=== PATIENT | male | born 1950 | race American Indian/Alaskan Native ===

== ENCOUNTER 2016-12-17 20:57 | Inpatient (IN) | payer MEDICARE ==
--- NOTE | 2016-12-17 21:45 | Emergency Department Report ---
ED Neuro Deficit HPI - General Stated Complaint: POSS CODE STROKE Time Seen by Provider: 12/17/16 21:30 Source: patient, family, old records reviewed Mode of arrival: Stretcher Limitations: Altered Mental Status - History of Present Illness Initial Comments: 66-year-old male with a past medical history of previous CVA with residual right -sided deficits, hyperlipidemia, hypertension, and dementia presents to the hospital with memory deficit. Patient had difficulty remembering the name of his cousin. Patient is alert to self and place but not to year. He claims this is a new problem for him. He denies any pain and states that his residual right-sided deficits are unchanged and denies any new weakness or numbness. Patient walks with a cane. He complains that the difficulty recalling the name of his cousin began today. Previous medical record review. Patient was last admitted here March 2016 for sepsis and UTI. At that time it is reported that he was overall a poor historian with a history of dementia and he was discharged to a personal senior care. Patient currently lives in his residence. He denies alcohol or drug abuse. Patient called EMS concerned he was having a possible stroke due to his memory deficit I spoke to patient's mechanical estimator from the personal senior care. Intervention Nurse expresses that early this morning patient had garbled speech. This seemed to improve when she dropped him off to be taking care of by another mechanical estimator. They will she picked him up he did not seem like himself. He Complained of not being able to remember his cousin and states he did not feel well and wanted to come to the hospital because he was concerned he was having another stroke. - Related Data Home Medications: Home Medications Medication Instructions Recorded Confirmed Last Taken Atorvastatin Calcium [Lipitor] 20 mg PO QHS 04/02/16 04/02/16 04/02/16 B12/Levomefolate Calcium/B-6 1 tab PO DAILY 04/02/16 04/02/16 04/02/16 Folic Acid [Folvite] 1 mg PO QDAY 04/02/16 04/02/16 04/02/16 Omeprazole 40 mg PO DAILY 04/02/16 04/02/16 04/02/16 Previous Rx's Medication Instructions Recorded Last Taken Type Aspirin [Aspirin BABY CHEW TAB] 81 mg PO QDAY #30 tab.chew 04/05/16 Unknown Rx Levofloxacin [Levaquin] 750 mg PO QDAY #5 tablet 04/05/16 Unknown Rx Fluticasone [Flonase] 1 spray NS QDAY #1 bottle 07/22/16 Unknown Rx Loratadine [Claritin] 10 mg PO DAILY #7 tablet 07/22/16 Unknown Rx Allergies/Adverse Reactions: Allergies Allergy/AdvReac Type Severity Reaction Status Date / Time No Known Allergies Allergy Verified 07/22/16 16:45 ED Review of Systems ROS: Stated complaint: POSS CODE STROKE Other details as noted in HPI Comment: All other systems reviewed and negative Other: Constitutional: No fevers chills Eyes: No eye pain visual changes ENT: No ear pain or throat pain Neck: Denies pain Respiratory: Denies cough wheezing shortness of breath Cardiovascular: Denies chest pain, palpitations, syncope GI: Denies abdominal pain, nausea, vomiting, diarrhea : Denies dysuria Musculoskeletal: Denies back pain, joint swelling Skin: Denies rash, lesions, erythema Neurologic: Denies headache, numbness, weakness Psychiatric: Denies suicidal ideation, hallucinations ED Past Medical Hx - Past Medical History Previous Medical History?: Yes Hx Hypertension: Yes Hx CVA: Yes Hx Dementia: Yes Additional medical history: high cholesterol, Right inquinal hernia - Surgical History Past Surgical History?: No - Social History Smoking Status: Current Every Day Smoker - Medications Home Medications: Home Medications Medication Instructions Recorded Confirmed Last Taken Type Atorvastatin Calcium [Lipitor] 20 mg PO QHS 04/02/16 04/02/16 04/02/16 History B12/Levomefolate Calcium/B-6 1 tab PO DAILY 04/02/16 04/02/16 04/02/16 History Folic Acid [Folvite] 1 mg PO QDAY 04/02/16 04/02/16 04/02/16 History Omeprazole 40 mg PO DAILY 04/02/16 04/02/16 04/02/16 History Aspirin [Aspirin BABY CHEW TAB] 81 mg PO QDAY #30 tab.chew 04/05/16 Unknown Rx Levofloxacin [Levaquin] 750 mg PO QDAY #5 tablet 04/05/16 Unknown Rx Fluticasone [Flonase] 1 spray NS QDAY #1 bottle 07/22/16 Unknown Rx Loratadine [Claritin] 10 mg PO DAILY #7 tablet 07/22/16 Unknown Rx ED Neuro Physical Exam - General Limitations: Altered Mental Status Suspected Stroke: Yes - NIHSS Assessment Interval: Baseline 1a. Level of Consciousness: alert 1b. LOC Questions: answers 1 question correctly 1c. LOC Commands: performs tasks correctly 2. Best Gaze: normal 3. Visual: no visual loss 4. Facial Palsy: normal symmetrical movement 5b. Motor Arm Right: drift 5a. Motor Arm Left: no drift 6a. Motor Leg Left: no drift 6b. Motor Leg Right: drift 7. Limb Ataxia: absent 8. Sensory: normal 9. Best Language: no aphasia 10. Dysarthria: mild/moderate dysarthria (chronic) 11. Extinction/Inattention: no abnormality Total Score: 4 Stroke Severity: Minor Stroke - Other Other exam information: General: No limitations, patient is alert in no acute distress Head exam: Atraumatic, normocephalic Eyes exam: Normal appearance, pupils equal reactive to light, extraocular movements intact ENT: Moist mucous membrane, normal oropharynx Neck exam: Normal inspection, full range of motion, no meningismus nontender Respiratory exam: Clear to auscultation bilateral, no wheezes, rales, crackles Cardiovascular: Normal rate and rhythm, normal heart sounds Abdomen: Soft, nondistended, and nontender, with normal bowel sounds, no rebound, or guarding Extremity: Full range of motion normal inspection no deformity Back: Normal Inspection, full range of motion, no tenderness Neurologic: Alert, oriented x2, cranial nerves intact, see NIH stroke scale. All deficits R pre-existing Psychiatric: normal affect, normal mood Skin: Warm, dry, intact - Lab Data Result diagrams: 12/17/16 22:43 12/17/16 22:43 Lab Results 12/17/16 12/17/16 12/17/16 Range/Units 22:43 22:43 22:43 WBC 6.9 (4.5-11.0) K/mm3 RBC 5.14 H (3.65-5.03) M/mm3 Hgb 15.0 (11.8-15.2) gm/dl Hct 45.0 (35.5-45.6) % MCV 88 (84-94) fl MCH 29 (28-32) pg MCHC 33 (32-34) % RDW 14.9 (13.2-15.2) % Plt Count 198 (140-440) K/mm3 Lymph % (Auto) 34.1 (13.4-35.0) % Leon % (Auto) 8.8 H (0.0-7.3) % Eos % (Auto) 2.9 (0.0-4.3) % Baso % (Auto) 1.4 (0.0-1.8) % Lymph # 2.3 (1.2-5.4) K/mm3 Leon # 0.6 (0.0-0.8) K/mm3 Eos # 0.2 (0.0-0.4) K/mm3 Baso # 0.1 (0.0-0.1) K/mm3 Seg Neutrophils % 52.8 (40.0-70.0) % Seg Neutrophils # 3.6 (1.8-7.7) K/mm3 PT 13.8 (12.2-14.9) Sec. INR 1.07 (0.87-1.13) APTT 29.1 (24.2-36.6) Sec. Sodium 142 (137-145) mmol/L Potassium 4.9 (3.6-5.0) mmol/L Chloride 103.2 (98-107) mmol/L Carbon Dioxide 27 (22-30) mmol/L Anion Gap 17 mmol/L BUN 17 (9-20) mg/dL Creatinine 1.0 (0.8-1.5) mg/dL Estimated GFR > 60 ml/min BUN/Creatinine Ratio 17.00 % Glucose 94 (75-100) mg/dL Calcium 9.4 (8.4-10.2) mg/dL - EKG Data -: EKG Interpreted by Me (nsr rate 68, no stemi) - Radiology Data Radiology results: report reviewed CT head noncontrast: No acute findings. There is a relative hypodensities are seen in the white matter of the cerebral hemispheres is nonspecific and may properly due to chronic ischemic changes from small vessel disease. Sequela from prior infarcts again noted. - Medical Decision Making Patient presented had a TIA. Speech is at baseline at this time. Patient still cannot Remmers causes pain but also has a history of dementia. Patient be admitted for TIA symptoms based on history provided by mechanical estimator. Nothing acute identified ED work. UA pending - Differential Diagnosis dementia, CVA, encephalopathy Critical Care Time: No Critical care attestation.: If time is entered above; I have spent that time in minutes in the direct care of this critically ill patient, excluding procedure time. ED Disposition Clinical Impression: TIA (transient ischemic attack), History of CVA (cerebrovascular accident), Dementia Disposition: OP ADMIT IP TO THIS HOSP Is pt being admited?: Yes Condition: Stable Time of Disposition: 00:41 (Dr Patten/hosp)
--- NOTE | 2016-12-17 22:28 | Cat Scan Report ---
FINAL REPORT EXAM: CT HEAD/BRAIN WO CON HISTORY: memory problems TECHNIQUE: Noncontrast serial axial images from skullbase to vertex PRIORS: CT head from 04/02/2016 FINDINGS: There is moderate atrophy. There is no mass effect or midline shift. Lateral ventricles are stable in size and configuration. There is focal ex vacuo change in the body of the left lateral ventricle. Areas of malacia are seen in the right temporal lobe, right frontal lobe and right parietal lobe. There is evidence of prior infarcts in the right basal ganglia and left subinsular region. There is evidence of prior infarct involving the posterior aspect of the right cerebellar hemisphere as well. Areas of relative hypodensity are seen in the white matter of the cerebral hemispheres and in the central portion of the moises. Atherosclerotic calcifications are noted. Paranasal sinuses and mastoid air cells are well aerated. No acute osseous abnormality is identified. IMPRESSION: 1. No abnormal mass or acute intracranial hemorrhage is identified. 2. Sequelae from prior infarcts are again noted. 3. Areas of relative hypodensity are seen in the white matter of the cerebral hemispheres. This is a nonspecific finding. It may be related to chronic ischemic change from small vessel disease.
[2016-12-17 22:57] LABS: Basophils % (Auto) 1.4 % (0.0-1.8); Eosinophils % (Auto) 2.9 % (0.0-4.3); Mean Corpuscular HGB Conc 33 % (32-34); Mean Corpuscular Hemoglobin 29 pg (28-32); Mean Corpuscular Volume 88 fl (84-94); Platelet Count 198 K/mm3 (140-440); Red Blood Count 5.14 M/mm3 (3.65-5.03); Red Cell Distribution Width 14.9 % (13.2-15.2); White Blood Count 6.9 K/mm3 (4.5-11.0)
[2016-12-17 23:08] LABS: INR 1.07 (0.87-1.13)
[2016-12-17 23:09] LABS: Partial Thromboplastin Time 29.1 Sec. (24.2-36.6)
[2016-12-17 23:15] LABS: Anion Gap 17 mmol/L; Blood Urea Nitrogen 17 mg/dL (9-20); Calcium 9.4 mg/dL (8.4-10.2); Carbon Dioxide 27 mmol/L (22-30); Chloride 103.2 mmol/L (98-107); Glucose 94 mg/dL (75-100); Potassium 4.9 mmol/L (3.6-5.0); Sodium 142 mmol/L (137-145)
[2016-12-18] MEDS ORDERED: GEODON PO ONE ×3 (01:22→21:00)
[2016-12-18] MEDS ORDERED: GEODON IM ONE (01:24)
[2016-12-18] MEDS ORDERED: ZOFRAN IV PRN (02:23)
[2016-12-18] MEDS ORDERED: SODIUM CHLORIDE FLUSH SYRINGE 10 ML IV PRN (02:23)
[2016-12-18] MEDS ORDERED: MILK OF MAGNESIA PO PRN (02:23)
[2016-12-18] MEDS ORDERED: DULCOLAX PR PRN (02:23)
[2016-12-18] MEDS ORDERED: TYLENOL PO PRN (02:23)
--- NOTE | 2016-12-18 02:35 | History and Physical Report ---
History of Present Illness Date of examination: 12/18/16 History of present illness: 66-year-old man with history of hypertension, hyperlipidemia, CVA, dementia was brought to the emergency room because he developed slurred speech and became more forgetful. His symptoms lasted for an hour Patient denies chest pain, palpitation, shortness of breath, cough, abdominal pain, hematochezia, dysuria, frequency, focal weakness, dysarthria, fever chills , polydipsia polyuria, hot or cold intolerance, easy bruisability, or rash or bleeding from mucosal membrane, rhinorrhea, epistaxis, earache, tinnitus, blurry vision, eye discharge, anxiety, depression. Other review of systems negative PAST SURGICAL HISTORY: Hernia repair SOCIAL HISTORY: Denies alcohol, drugs, smoke a pack a day FAMILY HISTORY: Hypertension Medications and Allergies Allergies Allergy/AdvReac Type Severity Reaction Status Date / Time No Known Allergies Allergy Verified 07/22/16 16:45 Home Medications Medication Instructions Recorded Confirmed Last Taken Type Atorvastatin Calcium [Lipitor] 20 mg PO QHS 04/02/16 04/02/16 04/02/16 History B12/Levomefolate Calcium/B-6 1 tab PO DAILY 04/02/16 04/02/16 04/02/16 History Folic Acid [Folvite] 1 mg PO QDAY 04/02/16 04/02/16 04/02/16 History Omeprazole 40 mg PO DAILY 04/02/16 04/02/16 04/02/16 History Aspirin [Aspirin BABY CHEW TAB] 81 mg PO QDAY #30 tab.chew 04/05/16 Unknown Rx Levofloxacin [Levaquin] 750 mg PO QDAY #5 tablet 04/05/16 Unknown Rx Fluticasone [Flonase] 1 spray NS QDAY #1 bottle 07/22/16 Unknown Rx Loratadine [Claritin] 10 mg PO DAILY #7 tablet 07/22/16 Unknown Rx Active Meds: Active Medications Acetaminophen (Tylenol) 650 mg PO Q4H PRN PRN Reason: Pain, Mild (1-3) Aspirin (Aspirin) 325 mg PO QDAY CHERYL Bisacodyl (Dulcolax) 10 mg ND QDAY PRN PRN Reason: Constipation Enoxaparin Sodium (Lovenox) 30 mg SUB-Q QDAY CHERYL Magnesium Hydroxide (Milk Of Magnesia) 30 ml PO Q4H PRN PRN Reason: Constipation Ondansetron HCl (Zofran) 4 mg IV Q8H PRN PRN Reason: N/V unrelieved by Reglan Simvastatin (Zocor) 20 mg PO QHS CHERYL Sodium Chloride (Sodium Chloride Flush Syringe 10 Ml) 10 ml INJ PRN PRN PRN Reason: LINE FLUSH Exam - Physical Exam Narrative exam: Gen. appearance: Patient lying in bed, no apparent distress HEENT: Normocephalic, atraumatic, pupils equally round and reactive to light, extraocular movement intact, and no sclericterus,. No JVD or thyromegaly or nodule,neck supple, no carotid bruit ,mucous membranes moist, no exudate or erythema Heart: S1, S2, regular rate and rhythm Lungs: Clear to auscultation bilaterally, breathing comfortable Abdomen: Positive bowel sounds, nontender, nondistended, no organomegaly Extremity: No edema, cyanosis, clubbing Skin: No rash, nodules, warm, dry Neuro: Oriented 3, cranial nerves II-12 intact, speech is fluent, motor and sensory intact - Constitutional Vitals: Temp Pulse Resp BP Pulse Ox 98.5 F 70 16 126/83 96 12/18/16 01:18 12/18/16 02:00 12/18/16 01:18 12/18/16 01:18 12/18/16 01:33 Results - Labs CBC & Chem 7: 12/17/16 22:43 12/17/16 22:43 Labs: Abnormal lab results 12/17/16 Range/Units 22:43 RBC 5.14 H (3.65-5.03) M/mm3 [place] % (Auto) 8.8 H (0.0-7.3) % - Imaging and Cardiology EKG: image reviewed CT Scan - head: report reviewed Assessment and Plan TIA Hypertension Hyperlipidemia Dementia History of CVA Admits medicine Do neurochecks, swallow screen Obtain MRI of the head, carotid Doppler, echo Part aspirin, statin consult neurology, physical and occupational therapy Start DVT prophylaxis Continue appropriate outpatient medications
[2016-12-18 03:01] LABS: Bilirubin,Urine NEG (Negative); Blood,Urine NEG (Negative); Ketones,Urine NEG (Negative); Leukocyte Esterase,Urine NEG (Negative); Nitrite,Urine NEG (Negative); Protein,Urine <15 mg/dL mg/dL (Negative); RBC,Urine < 1.0 /HPF (0.0-6.0); WBC,Urine < 1.0 /HPF (0.0-6.0)
[2016-12-18] MEDS ORDERED: ATIVAN IV ONE (09:44)
[2016-12-18] MEDS ORDERED: ATIVAN IV PRN (09:45)
[2016-12-18] MEDS: ASPIRIN PO SCH (09:57)
[2016-12-18] MEDS: LOVENOX SUB-Q SCH (10:01)
--- NOTE | 2016-12-18 12:36 | Magnetic Resonance Report ---
MRI OF THE BRAIN WITHOUT CONTRAST: HISTORY: Stroke PROCEDURE: Multiplanar, multisequence MR imaging of the brain without IV contrast was performed. FINDINGS: Compared to the CT head performed 12/17/16. There is advanced diffuse volume loss. Advanced chronic white matter changes are also identified, right greater than left. There are multiple chronic lacunar infarcts in both basal ganglia and staples radiata. A chronic tear infarctions also identified in the left moises. Small chronic cortical infarcts are identified in the right watershed zones and right anterior temporal lobe. No evidence for acute ischemia, hemorrhage, mass or extra axial fluid collection. The midline structures are central. The basal cisterns are patent. Normal ventricular size given the volume loss. The orbital cavities and sella turcica demonstrate no abnormality. The visualized paranasal sinuses and mastoid air cells are well aerated. IMPRESSION: Advanced volume loss and chronic white matter changes. Multiple chronic infarcts as outlined above. No acute intracranial process is appreciated.
--- NOTE | 2016-12-18 15:52 | Consultation ---
History of Present Illness - Reason for Consult Consult date: 12/18/16 TIA's - History of Present Illness went over the imaging studies and advanced ! infarcts all chronic a/w hx of TIA's plan to go over grace with radiology to see if we cab reduce stroke risk factors Thanks Medications and Allergies Allergies Allergy/AdvReac Type Severity Reaction Status Date / Time No Known Allergies Allergy Verified 07/22/16 16:45 Home Medications Medication Instructions Recorded Confirmed Last Taken Type Atorvastatin Calcium [Lipitor] 20 mg PO QHS 04/02/16 04/02/16 04/02/16 History B12/Levomefolate Calcium/B-6 1 tab PO DAILY 04/02/16 04/02/16 04/02/16 History Folic Acid [Folvite] 1 mg PO QDAY 04/02/16 04/02/16 04/02/16 History Omeprazole 40 mg PO DAILY 04/02/16 04/02/16 04/02/16 History Aspirin [Aspirin BABY CHEW TAB] 81 mg PO QDAY #30 tab.chew 04/05/16 Unknown Rx Levofloxacin [Levaquin] 750 mg PO QDAY #5 tablet 04/05/16 Unknown Rx Fluticasone [Flonase] 1 spray NS QDAY #1 bottle 07/22/16 Unknown Rx Loratadine [Claritin] 10 mg PO DAILY #7 tablet 07/22/16 Unknown Rx Active Meds: Active Medications Acetaminophen (Tylenol) 650 mg PO Q4H PRN PRN Reason: Pain, Mild (1-3) Aspirin (Aspirin) 325 mg PO QDAY [facility] Last Admin: 12/18/16 09:57 Dose: 325 mg Bisacodyl (Dulcolax) 10 mg SD QDAY PRN PRN Reason: Constipation Enoxaparin Sodium (Lovenox) 40 mg SUB-Q QDAY [facility] Last Admin: 12/18/16 10:01 Dose: 40 mg Lorazepam (Ativan) 1 mg IV Q4H PRN PRN Reason: Agitation Magnesium Hydroxide (Milk Of Magnesia) 30 ml PO Q4H PRN PRN Reason: Constipation Ondansetron HCl (Zofran) 4 mg IV Q8H PRN PRN Reason: N/V unrelieved by Reglan Simvastatin (Zocor) 20 mg PO QHS [facility] Sodium Chloride (Sodium Chloride Flush Syringe 10 Ml) 10 ml IV PRN PRN PRN Reason: LINE FLUSH Exam - Constitutional Vitals: Temp Pulse Resp BP Pulse Ox 97.9 F 68 18 126/76 94 12/18/16 12:13 12/18/16 12:13 12/18/16 12:13 12/18/16 12:13 12/18/16 12:13 Results - Labs CBC & Chem 7: 12/17/16 22:43 12/17/16 22:43
--- NOTE | 2016-12-18 17:24 | Event Note ---
Date: 12/18/16 Patient seen and examined, in no acute distress. continue current treatment plan.
[2016-12-18] MEDS ORDERED: ZOCOR PO SCH (22:00)
[2016-12-19 06:08] LABS: Hematocrit 50.4 % (35.5-45.6); Hemoglobin 17.1 gm/dl (11.8-15.2); Mean Corpuscular HGB Conc 34 % (32-34); Mean Corpuscular Hemoglobin 29 pg (28-32); Mean Corpuscular Volume 86 fl (84-94); Platelet Count 184 K/mm3 (140-440); Red Blood Count 5.84 M/mm3 (3.65-5.03); Red Cell Distribution Width 14.5 % (13.2-15.2); White Blood Count 9.2 K/mm3 (4.5-11.0)
[2016-12-19 06:28] LABS: Anion Gap 19 mmol/L; Blood Urea Nitrogen 16 mg/dL (9-20); Calcium 9.2 mg/dL (8.4-10.2); Carbon Dioxide 24 mmol/L (22-30); Chloride 103.2 mmol/L (98-107); Cholesterol 150 mg/dL (50-199); Glucose 68 mg/dL (75-100); HDL Cholesterol 56 mg/dL (40-59); LDL Cholesterol,Direct 81 mg/dL (50-130); Potassium 4.4 mmol/L (3.6-5.0); Sodium 142 mmol/L (137-145); Triglycerides 66 mg/dL (2-149)
--- NOTE | 2016-12-19 10:06 | Admit Criteria Form ---
Admission Criteria Documentation: TRANSIENT ISCHEMIC ATTACK (TIA) Clinical Indications for Admission to Inpatient Care (Place 'X' for any and all applicable criteria): Admission is indicated for ANY ONE of the following(1)(2)(3)(4)(5): [ ]I. Immediate inpatient procedure is needed (eg, endarterectomy). [ ]II. Inpatient admission required rather than observation care (Also use Transient Ischemic Attack (TIA): Observation Care Criteria as appropriate) because of ANY ONE of the following: [ ]a) Focal neurologic signs or symptoms persist or recurring [ ]b) Cardiac arrhythmias of immediate concern [ ]c) Clinically significant cardiac disorder identified that requires inpatient care (eg, severe valvular disease, atrial myxoma, cardiomyopathy) [ ]d) Hypertension requiring inpatient treatment [ ]e) Parenteral anticoagulation required (eg, alternative forms of anticoagulation not appropriate or not feasible) as indicated by ALL of the following(13): [ ]i) Temporary subtherapeutic anticoagulation unacceptable because of high risk of short-term venous or arterial thromboembolism due to ANY ONE of the following(14)(15)(16): [ ]1) Atrial fibrillation suspected as etiology of TIA(17)(18)(19)(20)(21) [ ]2) Venous thromboembolism within past 12 months [ ]3) Underlying malignancy [ ]4) Patient with mechanical cardiac valve(22)( 23) [ ]5) Underlying hypercoagulable state (eg, protein C or protein S deficiency antithrombin deficiency, antiphospholipid antibodies) [ ]6) Patient at temporary high risk of thromboembolism (eg, status post orthopedic surgery) [ ]ii) Contraindications to outpatient use of "bridging" agent or alternative oral anticoagulant[B] as indicated by ALL of the following: [ ]1) Contraindication to outpatient use of low- molecular-weight heparin as "bridging" agent as indicated by ANY ONE of the following(15): [ ]A. Documented current or history of heparin-induced thrombocytopenia(24) [ ]B. Severe thrombocytopenia (eg, platelet count less than 50,000/mm3 (75y518/L) [ ]C. Documented allergy to heparin, low- molecular-weight heparin, or pork products [ ]D. Renal failure (creatinine clearance less than 30 mL/min/1.73m2 (0.50mL/sec/1.73m2) or on dialysis) [ ]E. Inability to manage self-injection ( eg, by patient, caregiver, or visiting nurse) [ ]2) Contraindication to outpatient use of fondaparinux as "bridging" agent as indicated by ANY ONE of the following(25)(26 )(27)(28): [ ]A. Severe thrombocytopenia (eg, platelet count less than 50,000/mm3 (50 x109/L)) [ ]B.Hypersensitivity to fondaparinux, related drugs, or product components [ ]C.Renal failure (creatinine clearance less than 30 mL/min/1.73m2 (0.50mL/sec/1.73m2) or on dialysis) [ ]D.Inability to manage self-injection ( eg, by patient, caregiver, or visiting nurse [ ]3. Oral direct thrombin inhibitor (eg, dabigatran) or oral coagulation factor Xa inhibitor (eg, rivaroxaban, apixaban) not appropriate as oral anticoagulation (eg, indication not appropriate) or contraindicated (eg, hypersensitivity, creatinine clearance less than 15 mL/min/1.73m2 ( 0.25 mL/sec/1.73m2) or on dialysis). [ ]f) Continuous IV infusion of anticoagulant, platelet inhibitor, vasoactive or antiarrhythmia(18)(19) [ ]g) Other condition, treatment, or monitoring requiring inpatient admission [ ]III. Contraindications and/or Inappropriate clinical situations for Observational Care in patients with Transient Ischemic Attack (TIA), when ANY ONE of the following is required: [ ]a) Patient with persistent or severe neurological deficit 24 [ ]b) Patient with acute CVA or other identified pathology should be admitted to inpatient for further care 25 [X]IV. General contraindications and/or Inappropriate clinical situations for Observational Care in patients with Transient Ischemic Attack (TIA), when ANY ONE of the following is required: [X]a) Prediction of prolongation of LOS based on ANY ONE of the following may be considered as a contraindication for observational care 2, 3, 4, 5, 6, 7, 8, 9, 10, 11 [X]i) Age > 65 yrs. [ ]ii) Patient arriving by ambulance [ ]iii) Patient with high acuity [ ]iv) Patient requiring vital sign monitoring [ ]v) Patient on IV medication [ ]b) Systolic blood pressures 180mmHg 3,12 [ ]c) Patient with altered mental status including delirium and other alteration of consciousness, (3) [ ]d) Patient whose discharge disposition will be to a long term home or rehabilitation home should not be managed in Emergency Department Observation Unit. CMS rule requires 3 days hospital stay before such placement.3,13 [ ]e) Patient with failure to thrive due to broad array of etiologies 3,16,17 [ ]f) Inability to ambulate 3,14 Extended stay beyond goal length of stay may be needed for(4)(30)(32): [ ]a) Parenteral anticoagulation required [ ]b) Dangerous arrhythmia [ ]c) Cardiac valvular disorder, atrial myxoma, cardiomyopathy [ ]d) Uncontrolled severe hypertension [ ]e) Severe carotid stenosis [ ]f) Active comorbidities (eg, heart failure) [ ]g) Extracranial vertebrobasilar disease(29) [ ]h) Clinical evolution of TIA into cerebrovascular accident (stroke) The original [employer] content created by [employer] has been revised. The portions of thecontent which have been revised are identified through the use of italic text or in bold, and [facility] has neither reviewed nor approved the modified material. All other unmodified content is copyright [employer]. Please see references footnoted in the original [employer] edition 2016 Admission Criteria Met: Yes
--- NOTE | 2016-12-19 11:00 | Consultation ---
History of Present Illness - Reason for Consult Consult date: 12/19/16 Evaluate for Acute IRU - History of Present Illness 66 y.o. male with history of prior CVA who presented due to acute onset of slurred speech and word finding difficulty. CT Brain and MRI Brain noted to be negative for any acute CVA. On today, pt reports that his speech has returned to normal. Pt currently lives with his cousin who has assisted him since his CVA many years ago. He is requiring a roll belt due to attempts to get out of bed. Consult placed for post acute placement recommendations. Past History Past Medical History: stroke (with minimal right sided weakness and mild dysarthria) Past Surgical History: No surgical history (pt denies) Social history: lives with family (cousin), smoking. denies: alcohol abuse Family history: no significant family history (pt denies) Medications and Allergies Allergies Allergy/AdvReac Type Severity Reaction Status Date / Time No Known Allergies Allergy Verified 07/22/16 16:45 Home Medications Medication Instructions Recorded Confirmed Last Taken Type Atorvastatin Calcium [Lipitor] 20 mg PO QHS 04/02/16 04/02/16 04/02/16 History B12/Levomefolate Calcium/B-6 1 tab PO DAILY 04/02/16 04/02/16 04/02/16 History Folic Acid [Folvite] 1 mg PO QDAY 04/02/16 04/02/16 04/02/16 History Omeprazole 40 mg PO DAILY 04/02/16 04/02/16 04/02/16 History Aspirin [Aspirin BABY CHEW TAB] 81 mg PO QDAY #30 tab.chew 04/05/16 Unknown Rx Levofloxacin [Levaquin] 750 mg PO QDAY #5 tablet 04/05/16 Unknown Rx Fluticasone [Flonase] 1 spray NS QDAY #1 bottle 07/22/16 Unknown Rx Loratadine [Claritin] 10 mg PO DAILY #7 tablet 07/22/16 Unknown Rx Active Meds: Active Medications Acetaminophen (Tylenol) 650 mg PO Q4H PRN PRN Reason: Pain, Mild (1-3) Aspirin (Aspirin) 325 mg PO QDAY CHERYL Last Admin: 12/18/16 09:57 Dose: 325 mg Bisacodyl (Dulcolax) 10 mg DC QDAY PRN PRN Reason: Constipation Enoxaparin Sodium (Lovenox) 40 mg SUB-Q QDAY [facility] Last Admin: 12/18/16 10:01 Dose: 40 mg Lorazepam (Ativan) 1 mg IV Q4H PRN PRN Reason: Agitation Magnesium Hydroxide (Milk Of Magnesia) 30 ml PO Q4H PRN PRN Reason: Constipation Ondansetron HCl (Zofran) 4 mg IV Q8H PRN PRN Reason: N/V unrelieved by Reglan Simvastatin (Zocor) 20 mg PO QHS [facility] Last Admin: 12/18/16 22:36 Dose: 20 mg Sodium Chloride (Sodium Chloride Flush Syringe 10 Ml) 10 ml IV PRN PRN PRN Reason: LINE FLUSH Review of Systems All systems: negative Ears, nose, mouth and throat: no headache Cardiovascular: no chest pain Neurological: change in speech (now improved to baseline) Exam - Constitutional Vitals: Vital Signs - 12hr 12/19/16 12/19/16 12/19/16 01:23 03:47 05:05 Temperature 97.9 F 97.5 F L Pulse Rate 60 Pulse Rate [ 0 L 0 L Radial] Pulse Rate [ 61 50 L Right Radial] Respiratory 18 20 Rate Blood Pressure 119/77 133/70 [Right Arm] O2 Sat by Pulse 95 93 Oximetry 12/19/16 08:21 Temperature 97.7 F Pulse Rate Pulse Rate [ 0 L Radial] Pulse Rate [ 62 Right Radial] Respiratory 20 Rate Blood Pressure 116/81 [Right Arm] O2 Sat by Pulse 100 Oximetry General appearance: no acute distress, other (roll belt in place) - EENT Eyes: EOM intact ENT: hearing intact, poor dentition - Neck Neck: supple, normal ROM - Respiratory Respiratory effort: normal Respiratory: bilateral: CTA - Cardiovascular Rhythm: regular Heart Sounds: Present: S1 & S2 - Extremities Extremities: No edema - Gastrointestinal General gastrointestinal: Present: soft, non-tender, non-distended, normal bowel sounds - Integumentary Integumentary: Present: clear - Neurologic Neurologic: CNII-XII intact, moves all extremities (4/5 strength), other ( sensation grossly intact) - Psychiatric Psychiatric: appropriate mood/affect, no memory intact (oriented to self and birthdate; aware that he is in the hospital, however, does not know the name), cooperative - Allied health notes Allied health notes reviewed: PT (SBA/Mary for bed mobility and transfers; CGA/ modA 10 feet with straight cane) FIMS assesment as documented by PT/OT/ST: Locomotion- walk/wheelchair Ambulation Distance 10 - Labs CBC & Chem 7: 12/19/16 04:58 12/19/16 04:58 Labs: Laboratory Results - last 72 hr 12/18/16 12/19/16 12/19/16 02:34 04:58 04:58 WBC 9.2 RBC 5.84 H Hgb 17.1 H Hct 50.4 H MCV 86 MCH 29 MCHC 34 RDW 14.5 Plt Count 184 Sodium 142 Potassium 4.4 Chloride 103.2 Carbon Dioxide 24 Anion Gap 19 BUN 16 Creatinine 0.8 Estimated GFR > 60 BUN/Creatinine Ratio 20.00 Glucose 68 L Calcium 9.2 Triglycerides 66 Cholesterol 150 LDL Cholesterol Direct 81 HDL Cholesterol 56 Cholesterol/HDL Ratio 2.67 Urine Color Yellow Urine Turbidity Clear Urine pH 5.0 Ur Specific [place] 1.026 Urine Protein <15 mg/dl Urine Glucose (UA) Neg Urine Ketones Neg Urine Blood Neg Urine Nitrite Neg Urine Bilirubin Neg Urine Urobilinogen 2.0 Ur Leukocyte Esterase Neg Urine WBC (Auto) < 1.0 Urine RBC (Auto) < 1.0 Assessment and Plan Patient was assessed and evaluated for Acute Inpatient Rehab Unit. 66 y.o. male with history of prior CVA; acute speech change has resolved and pt is now at baseline. PT evaluation has been reviewed; pt requires SBA-Mary for transfers and bed mobility, CGA/modA for gait short distances. Pt is safe to return home with 24 hour supervision for family, as previous. Pt would likely benefit from home vs outpt PT to address gait instability. Will need to follow up with PCP, Neurology as outpt. Case discussed with primary team. Please call for further questions. Thank you for consultation. - Patient Problems (1) TIA (transient ischemic attack) Current Visit: Yes Status: Acute Qualifiers: Transient cerebral ischemia type: T (2) History of CVA (cerebrovascular accident) Current Visit: Yes Status: Acute (3) Dysarthria as late effect of cerebrovascular accident (CVA) Current Visit: Yes Status: Acute (4) Tobacco abuse Current Visit: Yes Status: Acute
[2016-12-19] MEDS: ASPIRIN PO SCH (11:05)
[2016-12-19] MEDS: LOVENOX SUB-Q SCH (11:05)
--- NOTE | 2016-12-19 11:28 | Discharge Summary ---
Providers - Providers Date of Admission: 12/18/16 02:23 Date of discharge: 12/19/16 Attending physician: LEE ANN RO MD 12/18/16 Consult to Physician [CONS] Routine Consulting Provider: CLARE MATHEWS Reason For Exam: tia Place consult to:: DR MATHEWS Notified:: Y If yes, spoke with:: LEFT MESSAGE AT OFFICE Time called:: 14:15 Comment:: 12/18/16 12/18/16 09:44 Consult to Physician [CONS] Routine Consulting Provider: AVINASH LIAO Reason For Exam: CVA Place consult to:: NEURO Notified:: Y If yes, spoke with:: A/S ANA Time called:: 12:15 Primary care physician: ORTHOPEDIC TECH Hospitalization Condition: Stable Disposition: DC/[place]-06 HOME UNDER HOME HLTH Time spent for discharge: 35 MINS Core Measure Documentation - Palliative Care Palliative Care/ Comfort Measures: Not Applicable - Core Measures Any of the following diagnoses?: stroke - Stroke Discharge Requirements Statin for LDL = or >70 mg/dl on DC: Yes Anticoag for atrial fib/atrial flutter: Not Applicable Antithrombotic for ischemic stroke: Yes Exam - Constitutional Vitals: Temp Pulse Resp BP Pulse Ox 97.7 F 0 L 20 116/81 100 12/19/16 08:21 12/19/16 08:21 12/19/16 08:21 12/19/16 08:21 12/19/16 08:21 Plan Activity: advance as tolerated, fall precautions Diet: low fat, low salt Special Instructions: record daily BP diary, physical therapy, occupational therapy Follow up with: YOHANA GUTIERREZ MD [Primary Care Provider] - 3-5 Days AVINASH LIAO MD [Staff Physician] - 7 Days Prescriptions: AtorvaSTATin [Lipitor] 40 mg PO QHS #30 tab
[2016-12-19 11:55] VITALS: BP 122/69
--- NOTE | 2016-12-20 08:01 | Vascular Lab Report ---
CAROTID DUPLEX STUDY: RIGHT PSVEDV CCA PROX:[id number] CCA DIST: 8821 ICA PROX: 5910 ICA MID: 7428 ICA DIST: 5821 ECA: 8210 VERT: 38 10 LEFT PSVEDV CCA PROX:[id number] CCA DIST: 9018 ICA PROX: 3815 ICA MID: 5116 ICA DIST: 7019 ECA: 5210 VERT: 42 9 REASON FOR EXAM: [place]. COMMENTS ON THE RIGHT: Doppler frequency analysis is consistent with 16 to 49 percent diameter reduction of the internal carotid artery. Minimal amount of plaque is seen. The common carotid artery is patent. The external carotid artery is patent. The vertebral artery has antegrade flow. COMMENTS ON THE LEFT: Doppler frequency analysis is consistent with 16 to 49 percent diameter reduction of the internal carotid artery. Minimal amount of plaque is seen. The common carotid artery is patent. The external carotid artery is patent. The vertebral artery has antegrade flow. IMPRESSION: Less than 50% diameter reduction in the internal carotid arteries bilaterally. Consider repeat carotid artery duplex in 12 months.
== END 2016-12-19 17:00 | disposition home health service (06) | DRG 69 ==
LOC: ED 20:57 → 4A 12-18 02:23
PROVIDERS: ADMIT Internal Medicine; ATTEND Internal Medicine
DX: G45.9 Transient cerebral ischemic attack, unspecified (principal); I10 Essential (primary) hypertension; E78.5 Hyperlipidemia, unspecified; F03.90 Unspecified dementia, unspecified severity, without behavioral disturbance, psychotic disturbance, mood disturbance, and anxiety; F17.200 Nicotine dependence, unspecified, uncomplicated; Z82.49 Family history of ischemic heart disease and other diseases of the circulatory system; I69.322 Dysarthria following cerebral infarction
CPT/HCPCS: 36415; 70450; 70551; 80048; 80061; 81001; 85025; 85027; 85610; 85730; 93005; 93010; 93306; 93880; 96374; G8978-GP; G8979-GP; G8987-GO; G8988-GO; J1650; J2060

== ENCOUNTER 2017-01-05 12:10 | Inpatient (IN) | payer MEDICARE, OTHER ==
[2017-01-05 13:28] LABS: Hematocrit 46.1 % (35.5-45.6); Hemoglobin 15.4 gm/dl (11.8-15.2); Mean Corpuscular HGB Conc 34 % (32-34); Mean Corpuscular Hemoglobin 29 pg (28-32); Mean Corpuscular Volume 87 fl (84-94); Platelet Count 211 K/mm3 (140-440); Red Cell Distribution Width 14.6 % (13.2-15.2); White Blood Count 6.1 K/mm3 (4.5-11.0)
[2017-01-05 13:36] LABS: Creatine Kinase MB 1.3 ng/mL (0.0-4.0)
[2017-01-05 13:37] LABS: Creatine Kinase 119 units/L (55-170)
[2017-01-05 13:38] LABS: INR 1.03 (0.87-1.13)
[2017-01-05 13:39] LABS: Partial Thromboplastin Time 28.6 Sec. (24.2-36.6)
[2017-01-05 14:01] LABS: Urine Drugs of Abuse Note Disclamer
[2017-01-05 14:08] LABS: Bilirubin,Urine NEG (Negative); Blood,Urine NEG (Negative); Ketones,Urine NEG (Negative); Leukocyte Esterase,Urine NEG (Negative); Mucus,Urine FEW /HPF; Nitrite,Urine NEG (Negative); Protein,Urine <15 mg/dL mg/dL (Negative); Urobilinogen,Urine < 2.0 mg/dL (<2.0)
[2017-01-05 14:11] LABS: WBC,Urine < 1.0 /HPF (0.0-6.0)
--- NOTE | 2017-01-05 14:14 | Emergency Department Report ---
HPI - General Chief Complaint: Neuro Symptoms/Deficit Time Seen by Provider: 01/05/17 12:37 - HPI HPI: This is a 66-year-old Afro[place] male presents to the emergency department from home via EMS with complaint of concern for a TIA or stroke. The patient has a history of a CVA from 4 years ago that left him with some slurred speech and left arm paralysis. Today the patient began having some drooling that was uncontrollable side of his mouth and this concerned him. His caregiver called EMS. He did not receive anything for his symptoms prior to presentation. He says that the drooling improved and that he feels like he is back at his baseline. He is ambulatory at baseline with some assistance. No recent travel or sick contacts at home. He denies any headache, vision change or sensory deficits or any worsening of his speech. ED Past Medical Hx - Past Medical History Hx Hypertension: Yes Hx CVA: Yes Hx Heart Attack/AMI: No Hx Congestive Heart Failure: No Hx Deep Vein Thrombosis: No Hx Pulmonary Embolism: No Hx Seizures: No Hx Asthma: No Hx Tuberculosis: No Hx Dementia: Yes Hx HIV: No Additional medical history: high cholesterol, Right inquinal hernia - Surgical History Hx Coronary Stent: No Hx Open Heart Surgery: No Hx Pacemaker: No Hx Internal Defibrillator: No Hx Appendectomy: No Hx Breast Surgery: No - Social History Smoking Status: Unknown if ever smoked - Medications Home Medications: Home Medications Medication Instructions Recorded Confirmed Last Taken Type B12/Levomefolate Calcium/B-6 1 tab PO DAILY #0 04/02/16 01/05/17 1 Day Ago History [Foltx Tablet] Folic Acid [Folvite] 1 mg PO QDAY 04/02/16 01/05/17 1 Day Ago History Omeprazole 40 mg PO DAILY 04/02/16 01/05/17 1 Day Ago History Aspirin [Aspirin BABY CHEW TAB] 81 mg PO QDAY #30 tab.chew 04/05/16 01/05/17 1 Day Ago Rx Fluticasone [Flonase] 1 spray NS QDAY #1 bottle 07/22/16 01/05/17 1 Day Ago Rx Loratadine [Claritin] 10 mg PO DAILY #7 tablet 07/22/16 01/05/17 1 Day Ago Rx AtorvaSTATin [Lipitor] 40 mg PO QHS #30 tab 12/19/16 01/05/17 Unknown Rx Latanoprost 0.005% [Xalatan 0.005%] 1 drop OP QPM 01/05/17 01/05/17 Unknown History ED Review of Systems ROS: Stated complaint: POSS TIA Other details as noted in HPI Comment: All other systems reviewed and negative Constitutional: denies: chills, fever Eyes: denies: eye pain, eye discharge, vision change ENT: other (drooling). denies: ear pain, throat pain Respiratory: denies: cough, shortness of breath, wheezing Cardiovascular: denies: chest pain, palpitations Gastrointestinal: denies: abdominal pain, nausea, diarrhea Genitourinary: denies: urgency, dysuria Musculoskeletal: denies: back pain, joint swelling, arthralgia Skin: denies: rash, lesions Neurological: denies: headache, weakness, paresthesias Physical Exam - Physical Exam Vital Signs: Vital Signs 01/05/17 01/05/17 12:33 12:45 Temperature 98.1 F Pulse Rate 66 Respiratory 16 17 Rate O2 Sat by Pulse 96 95 Oximetry Physical Exam: GENERAL: The patient is well-developed well-nourished. HEENT: Normocephalic. Atraumatic. Extraocular motions are intact. Patient has moist mucous membranes. Pupils equal reactive to light bilaterally. Oropharynx clear. NECK: Supple. Trachea is midline. CHEST/LUNGS: Clear to auscultation. There is no respiratory distress noted. HEART/CARDIOVASCULAR: Regular. There is no tachycardia. There is no gallop rub or murmur. ABDOMEN: Abdomen is soft, nontender. Patient has normal bowel sounds. There is no abdominal distention. SKIN: Skin is warm and dry. NEURO: The patient is awake, alert. AAO [address] but not time. The patient is cooperative. There is slurred speech but the patient says that this is chronic. Chronic left upper extremity paraplegia. No facial asymmetry. MUSCULOSKELETAL: There is no tenderness to palpation. Chronic left upper extremity paraplegia and atrophy. Radial pulses +2 over 4 bilaterally. ED Course Vital Signs 01/05/17 01/05/17 12:33 12:45 Temperature 98.1 F Pulse Rate 66 Respiratory 16 17 Rate O2 Sat by Pulse 96 95 Oximetry ED Medical Decision Making - Lab Data Result diagrams: 01/05/17 12:54 01/05/17 12:54 - EKG Data EKG shows normal: sinus rhythm, axis (LAD), intervals, QRS complexes, ST-T waves Rate: normal - EKG Data When compared to previous EKG there are: previous EKG unavailable Interpretation: other (Sinus, LAD) - Radiology Data Radiology results: report reviewed CT of the head without contrast shows no acute findings. Multiple chronic infarcts, more involving the right hemisphere are stable. Chronic periventricular microangiopathic ischemic changes are also present. - Medical Decision Making 58-year-old male presents to the emergency department after he had an episode of drooling and possible facial asymmetry with concern for TIA versus CVA versus other. The symptoms resolved and the patient felt like he was back at baseline here. I did not witness it but the caregiver, who is now bedside, said there was another episode briefly while he was in the emergency department. CT does not show any acute process. Labs are mostly unremarkable do not show etiology of the patient's symptoms. However with his previous history of CVA and the intermittent episodes of strokelike symptoms, the patient will be admitted to the hospital for further evaluation and treatment. He is certainly not a TPA candidate as the symptoms improve if not resolved and there is no known starting time of last known well time. This patient has been presented to the hospitalist, Dr. Farley, who will either do the history and physical or will pass it along to the incoming admitting hospitalist. - Differential Diagnosis CVA, TIA, hypoglycemia, [place] Critical Care Time: No Critical care attestation.: If time is entered above; I have spent that time in minutes in the direct care of this critically ill patient, excluding procedure time. ED Disposition Clinical Impression: History of CVA (cerebrovascular accident) TIA (transient ischemic attack) Qualifiers: Transient cerebral ischemia type: unspecified Qualified Code(s): G45.9 - Transient cerebral ischemic attack, unspecified Dementia Qualifiers: Dementia type: unspecified type Dementia behavioral disturbance: without behavioral disturbance Qualified Code(s): F03.90 - Unspecified dementia without behavioral disturbance Disposition: OP ADMIT IP TO THIS HOSP Is pt being admited?: Yes Condition: Stable Referrals: PRIMARY CARE,MD [Primary Care Provider] - 3-5 Days
--- NOTE | 2017-01-05 15:27 | Admit Criteria Form ---
Admission Criteria Documentation: NEUROLOGY GRG Clinical Indications for Admission to Inpatient Care (Place ' X' for any and all applicable criteria): Hospital admission is needed for appropriate care of the patient because of 1 or more of the following: [ ]I. Encephalitis [ ]II. Severe [employer] infections indicated by 1 or more of the following(1)(2)(3) : [ ]a) Intracranial abscess [ ]b) Spinal abscess or myelitis [ ]c) Tuberculous or other nonbacterial, nonviral [employer]HE[employer] O[employer] infection(8) [ ]III. Vasculitis and 1 or more of the following(14)(15): []a) Altered mental status that is severe or persistent or other acute neurologic change []b) Psychosis []c) Seizure [ ]IV. Status epilepticus or repetitive seizures not controlled with emergent treatment [A] (7)(8) [ ]V. Altered mental status that is severe or persistent [ ]. Transient alteration in consciousness with high-risk etiology; examples include (12)(13): [ ]a) Cardiovascular source [ ]b) Cataplexy [ ]VII. Cerebral aneurysm requiring ANY ONE of the following(14): [ ]a) IV antihypertensives or vasoactive agents [ ]b) Sedation and analgesia for suspected leak [ ]c) Need for external ventricular drainage and cerebral perfusion pressure monitoring [ ]d) Emergent evaluation to determine need for surgical clipping or endovascular coiling by interventional radiology. If surgery is required ( Also use Craniotomy, Supratentorial, for Surgery of Bleeding Intracranial Aneurysm (for bleeding aneurysm) or Craniotomy, Supratentorial (for nonbleeding aneurysm) as appropriate. [ ]VIII. New-onset severe neurologic symptom requiring inpatient care indicated by ANY ONE of the following: [ ]a) Aphasia(15) [ ]b) Weakness (grade 3 or less) [ ]c) Paralysis (eg, hemiplegia) [ ]d) Spasticity(16) [ ]e) Dystonia [ ]e) Ataxia(17) [ ]f) Amnesia(18) [ ]g) Involuntary movements(19) [ ]h) Vertigo [ ] Visual loss [ ]i) Other severe neurologic finding (eg, papilledema, mass effect on imaging, myoclonus not treatable at alternative level of care (eg, observation care) [ ]IX. Guillain-[place] syndrome(20) [ ]X. Myasthenia gravis crisis or inpatient monitoring need as indicated by 1 or more of the following(21): [ ]a) Intensive treatment (eg, course of plasmapheresis) with inadequate outpatient situation to monitor patients status [ ]b) Inadequate airway protection [ ]c) Respiratory insufficiency requiring intubation or inpatient. monitoring [ ]d) Progressive dysphagia with failure to thrive [ ]XI. Multiple sclerosis or other acute demyelinating disease requiring inpatient care as indicated by 1 or more of the following (22)(23): [ ]a) Acute severe deterioration requiring inpatient treatment (eg, IV steroids, plasmapheresis, close observation) [ ]b) Acute complication requiring inpatient care (eg, sepsis, severe decubitus, aspiration) [ ]XII.Parkinson disease requiring inpatient care (Also use Optimal Recovery Care Criteria or General Recovery Criteria as appropriate) indicated by 1 or more of the following(25): [ ]a) Infection (eg, aspiration pneumonia) not treatable at alternative level of care [ ]b Dehydration that is severe or persistent [ ]c) Life-threatening agitation or psychotic behavior not treatable on emergency, observation care, or alternative level (eg, residential) basis [ ]d) Severe medication withdrawal effects (eg, freezing, neuroleptic malignant syndrome) not responsive to emergency and observation care treatment ( as appropriate) [ ]e) Other severe manifestation not treatable at alternative level of care [ ]XII. Amyotrophic lateral sclerosis with inpatient care needs as indicated by ANY ONE of the following(26): [ ]a) Acute complications (eg, aspiration pneumonia, sepsis ) requiring inpatient care ( see other optimal Recovery Guideline as appropriate) [ ]b) Dehydration that is severe persistent AND artificial support desired [ ]c) Inadequate airway protection AND artificial support desired [ ]d) Severe ventilatory insufficiency AND artificial support desired [ ]XIII. Myasthenia gravis crisis or inpatient monitoring need as indicated by 1 or more of the following(21): [] a) Inadequate airway protection []b) Respiratory insufficiency requiring intubation or inpatient monitoring []c) Progressive dysphagia with failure to thrive []d) Intensive treatment (e.g., course of plasmapheresis) with inadequate outpatient situation to monitor patients status [ ]XIV. Multiple sclerosis or other acute demyelinating disease requiring inpatient care indicated by 1 or more of the following[C](36)(43)(44)(45)(46): []a) Acute severe deterioration requiring inpatient treatment (eg, IV steroids, plasmapheresis, close observation) []b) Acute complication requiring inpatient care (eg, sepsis, severe decubitus, aspiration) [ ]XV. Intracranial hypertension (e.g., pseudotumor cerebri) requiring inpatient care (e.g., acute visual loss, inadequate oral intake) (47)(48)(49) [ ]XVI. Parkinson disease requiring inpatient care (Also use Optimal Recovery Care Criteria or General Recovery Criteria as appropriate) indicated by 1 or more of the following(25): [] a) Infection (e.g., aspiration pneumonia) not treatable at alternative level of care []b) Volume depletion not responsive to emergency and observation care treatment (as appropriate) []c) Life-threatening agitation or psychotic behavior not treatable on emergency, observation care, or alternative level (e.g., residential) basis []d) Severe medication withdrawal effects (e.g., freezing, neuroleptic malignant syndrome) not responsive to emergency and observation care treatment (as appropriate) []e) Other severe manifestation not treatable at alternative level of care [ ]XVII. Amyotrophic lateral sclerosis with inpatient care needs as indicated by1 or more of the following(42): []a) Acute complications (eg, aspiration pneumonia, sepsis) requiring inpatient care (see other Optimal Recovery Guideline or General Recovery Guideline as appropriate) []b) Dehydration that is severe or persistent AND artificial support desired []c) Inadequate airway protection AND artificial support desired []d) Severe ventilatory insufficiency AND artificial support desired [ ]XVIII. Severe myopathy, neuropathy, or other neuromuscular disease indicated by 1 or more of the following(42)(52)(53)(54): []a ) New-onset severe diffuse weakness (eg, strength 3/5 or less) []b) Severe dysphagia []c) Dyspnea at rest or with minimal exertion (new) []d) Inadequate airway protection []e) Inadequate ventilation indicated by 1 or more of the following : i) Partial pressure of carbon dioxide greater than 44 mm Hg ( 5.9 kPa) (new) ii) Reduced peak expiratory flow rate (new) iii) Vital capacity less than 50% of predicted (less than 15 mL/kg) iv) Peak inspiratory force less negative than -30 cm H2O (- 2942 Pa) [ ]XVII.Complications of congenital or degenerative disease (eg, infection, seizures, dehydration, injury) not responsive to emergency and observation care treatment (as appropriate ) [C](16)(29)(30) [ ]XVIII.Suspected or confirmed nerve or muscle toxic injury, including ANY ONE of the following: [ ]a) Rhabdomyolysis(31) i) Acute renal failure ii) Dehydration that is severe or persistent iii) Altered mental status that is severe or persistent iv) Electrolyte abnormality that remains after emergency or observation level care ( as appropriate) [ ]b) Botulism(32) [ ]c) Other severe toxin-induced sign or symptom [ ]XIX. Neurologic trauma requiring inpatient treatment (medical) indicated by ANY ONE of the following(33)(34): [ ]a) Vital signs or neurologic signs more frequently than every 4 hours [ ]b) Hyperosmolar therapy [ ]c) Respiratory monitoring [ ]d) Intracranial pressure monitoring and treatment [ ]e) Stabilization and immobilization device placement (eg, braces, body jacket) [ ]f) Intubation & mechanical ventilation for airway protection or therapeutic hyperventilation [ ]g) Other treatment or monitoring needed that requires inpatient level of care [ ]XX.Complications of neurologic devices (eg, ventricular shunt, neurostimulator) requiring 1 or more of the following(35)(36): [ ]a) IV antibiotics with monitoring while awaiting culture results [ ]b) Monitoring for hydrocephalus [ X]XXI. Neurology condition symptom, or finding for which emergency and observation care have failed or are not considered appropriate. See General Criteria: Observation Care ISC, General Admission Criteria GRG, or Pediatric General Admission Criteria GRG guideline as appropriate. The original [facility] [employer] content created by [facility] has been revised. The portions of the content which have been revised are identified through the use of italic text or in bold, and [facility] has neither reviewed nor approved the modified material. All other unmodified content is copyright [facility] Please see references footnoted in the original [facility] edition 2016 Admission Criteria Met: Yes
--- NOTE | 2017-01-05 15:59 | Cat Scan Report ---
Cranial CT without contrast. History: Stroke. Findings: Comparison is made to previous study performed on December 17, 2016. There is no evidence of acute hemorrhage or infarct. Multiple chronic infarcts are again noted with no significant interval change. There are no masses or extra-axial collections. Periventricular hypodensities are stable. Impression: No acute findings. Multiple chronic infarcts, more involving the right hemisphere are stable. Chronic periventricular microangiopathic ischemic changes are also present.
[2017-01-05 16:53] LABS: Alanine Aminotransferase 7 units/L (7-56); Albumin 3.8 g/dL (3.9-5); Albumin/Globulin Ratio 1.3 %; Alkaline Phosphatase 108 units/L (35-129); Anion Gap 19 mmol/L; Blood Urea Nitrogen 12 mg/dL (9-20); Calcium 9.2 mg/dL (8.4-10.2); Carbon Dioxide 23 mmol/L (22-30); Chloride 101.9 mmol/L (98-107); Glucose 69 mg/dL (75-100); Potassium 4.4 mmol/L (3.6-5.0); Sodium 139 mmol/L (137-145); Total Protein 6.8 g/dL (6.3-8.2)
[2017-01-05 16:56] LABS: Creatine Kinase MB 1.4 ng/mL (0.0-4.0)
[2017-01-05 16:57] LABS: Creatine Kinase 160 units/L (55-170)
[2017-01-05] MEDS ORDERED: REGLAN PO PRN (19:45)
[2017-01-05] MEDS ORDERED: ZOFRAN IV PRN (19:45)
[2017-01-05] MEDS ORDERED: TYLENOL PO PRN (19:45)
[2017-01-05] MEDS ORDERED: MILK OF MAGNESIA PO PRN (19:45)
[2017-01-05] MEDS ORDERED: B12 PO SCH (19:45)
[2017-01-05] MEDS ORDERED: LEVOMEFOLATE CALCIUM PO SCH (19:45)
[2017-01-05] MEDS ORDERED: DULCOLAX PR PRN (19:45)
[2017-01-05] MEDS ORDERED: SODIUM CHLORIDE FLUSH SYRINGE 10 ML IV PRN (19:45)
[2017-01-05] MEDS ORDERED: B6 PO SCH (19:45)
--- NOTE | 2017-01-05 20:01 | History and Physical Report ---
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 This was associated with worsening of his slurred speech with intermittent complete aphasia. Patient was also observed to be gazing into anticipates occasionally. EMS was called in and patient was brought to the emergency department. CT scan of the head was negative. Patient still had residual weakness on the left upper extremity with slow speech. Admission was therefore requested. Past History Past Medical History: stroke (with left hemiparesis and dysphagia, prostate cancer, emphysema.) Medications and Allergies Allergies Allergy/AdvReac Type Severity Reaction Status Date / Time No Known Allergies Allergy Verified 07/22/16 16:45 Home Medications Medication Instructions Recorded Confirmed Last Taken Type B12/Levomefolate Calcium/B-6 1 tab PO DAILY #0 04/02/16 01/05/17 1 Day Ago History [Foltx Tablet] Folic Acid [Folvite] 1 mg PO QDAY 04/02/16 01/05/17 1 Day Ago History Omeprazole 40 mg PO DAILY 04/02/16 01/05/17 1 Day Ago History Aspirin [Aspirin BABY CHEW TAB] 81 mg PO QDAY #30 tab.chew 04/05/16 01/05/17 1 Day Ago Rx Fluticasone [Flonase] 1 spray NS QDAY #1 bottle 07/22/16 01/05/17 1 Day Ago Rx Loratadine [Claritin] 10 mg PO DAILY #7 tablet 07/22/16 01/05/17 1 Day Ago Rx AtorvaSTATin [Lipitor] 40 mg PO QHS #30 tab 12/19/16 01/05/17 Unknown Rx Latanoprost 0.005% [Xalatan 0.005%] 1 drop OP QPM 01/05/17 01/05/17 Unknown History Active Meds: Active Medications Acetaminophen (Tylenol) 650 mg PO Q4H PRN PRN Reason: Pain, Mild (1-3) Aspirin (Aspirin) 325 mg PO QDAY CHERYL Atorvastatin Calcium (Lipitor) 40 mg PO QHS CHERYL Bisacodyl (Dulcolax) 10 mg IN QDAY PRN PRN Reason: Constipation Enoxaparin Sodium (Lovenox) 40 mg SUB-Q DAILY@2200 [facility] Fluticasone Propionate (Flonase) 100 mcg NS QDAY [facility] Folic Acid (Folvite) 1 mg PO QDAY [facility] Latanoprost (Xalatan 0.005%) 1 drops OU QHS [facility] Loratadine (Claritin) 10 mg PO DAILY [facility] Magnesium Hydroxide (Milk Of Magnesia) 30 ml PO Q4H PRN PRN Reason: Constipation Metoclopramide HCl (Reglan) 10 mg PO Q6H PRN PRN Reason: Nausea And Vomiting Miscellaneous Medication (B12/Levomefolate Calcium/B-6 [Foltx Tablet]) 1 tab PO DAILY CHERYL Ondansetron HCl (Zofran) 4 mg IV Q8H PRN PRN Reason: N/V unrelieved by Reglan Simvastatin (Zocor) 20 mg PO QHS [facility] Sodium Chloride (Sodium Chloride Flush Syringe 10 Ml) 10 ml INJ PRN PRN PRN Reason: LINE FLUSH Review of systems Constitutional: Well Nouridhed and Well developed. Head: NC/ AT Eyes: Denies any visual impairments. No discharge from the eyes Nose: Denies any rhinorrhea or epistaxis Throats: Denies any post nasal drainage. Ears: Denies any hearing deficits Cardiovascular system: Denies any chest pain, shortness of breath, orthopnea, paroxysmal nocturnal dyspnea, or palpitation. Respiratory system: Denies any cough, difficulty breathing, wheezing, pleuritic chest pain, Gastrointestinal system: Denies any abdominal pain, nausea vomiting, hematemesis or melena. Neurological system: Coumadin, left sided weakness, slurred speech, Genitalia system: Denies any dysuria, urinary frequency or urgency, urethral discharge Skin: No rashes, hyperpigmented spots. Hematological: Denies any cervical tenderness hemorrhages or petechia. Immunological: Denies any multiple septic spots, Lymphatic: Denies any generalized lymphadenopathy. Endocrine: Denies any polyuria, polydipsia, polyphagia. No heat or cold intolerance. Musculoskeletal system: No joint pain or swelling. Psych: No visual, tactile, auditory or hallucination Exam - Constitutional Vitals: Temp Pulse Resp BP Pulse Ox 97.9 F 65 18 119/65 100 01/05/17 12:37 01/05/17 19:21 01/05/17 19:21 01/05/17 19:21 01/05/17 19:21 General appearance: Present: no acute distress, well-nourished - EENT Eyes: Present: PERRL ENT: hearing intact, clear oral mucosa - Neck Neck: Present: supple, normal ROM - Respiratory Respiratory effort: normal Respiratory: bilateral: CTA - Cardiovascular Heart Sounds: Present: S1 & S2. Absent: rub, click - Extremities Extremities: pulses symmetrical, No edema Peripheral Pulses: within normal limits - Abdominal General gastrointestinal: Present: soft, non-tender, non-distended, normal bowel sounds Male genitourinary: Present: normal - Integumentary Integumentary: Present: clear, warm, dry - Musculoskeletal Musculoskeletal: gait normal, strength equal bilaterally - Psychiatric Psychiatric: appropriate mood/affect, intact judgment & insight - Neurologic Neurologic: CNII-XII intact, moves all extremities Results - Labs CBC & Chem 7: 01/05/17 12:54 01/05/17 12:54 Labs: Abnormal lab results 01/05/17 01/05/17 Range/Units 12:54 12:54 RBC 5.30 H (3.65-5.03) M/mm3 Hgb 15.4 H (11.8-15.2) gm/dl Hct 46.1 H (35.5-45.6) % Baso % (Auto) 2.0 H (0.0-1.8) % Glucose 69 L (75-100) mg/dL Albumin 3.8 L (3.9-5) g/dL Assessment and Plan - Recurrence stroke with drooling, worsening left sided hemiparesis - Hypoglycemia - Old stroke - History of prostate cancer Admits, Obtain MRI MRA of the brain and neck, echocardiogram, commence patient on aspirin, statin, PT OT ST evaluation and treatment. Neuro check every 2 hours 24 hours been every 4 D5 half-normal to optimize glycemic level DVT prophylaxis with Lovenox and GI with Protonix Discussed at length with patient and caregiver during the examination explaining management plans Spent 35 minutes during this admission process everything laboratory and radiological data as well as discussed with patient's caregiver
[2017-01-05] MEDS ORDERED: ASPIRIN ONE (20:10)
[2017-01-05] MEDS ORDERED: LOVENOX SUB-Q ONE (20:10)
[2017-01-05] MEDS: LOVENOX SUB-Q SCH ×2 (20:14→21:26)
[2017-01-05] MEDS: ASPIRIN PO SCH (20:14)
[2017-01-05] MEDS ORDERED: ZOCOR PO SCH (22:00)
[2017-01-06] MEDS ORDERED: ATIVAN IV PRN (10:00)
--- NOTE | 2017-01-06 11:20 | Magnetic Resonance Report ---
MRA HEAD WITHOUT CONTRAST HISTORY: Stroke. [id number] imaging with MIP reformations of the [place] is submitted. Limited exam with mild patient motion artifact. The arteries appear widely patent and free of hemodynamically significant stenosis or aneurysm dilatation. Both vertebral arteries are identified appearing patent as well. IMPRESSION: Unremarkable MRA head.
--- NOTE | 2017-01-06 11:20 | Magnetic Resonance Report ---
MRI OF THE BRAIN WITHOUT CONTRAST: HISTORY: CVA PROCEDURE: Multiplanar, multisequence MR imaging of the brain without IV contrast was performed. FINDINGS: Compared to the noncontrast CT brain performed 01/05/17. Advanced cortical volume loss and chronic white matter changes are identified for this persons age. There are multiple bilateral chronic infarcts. Chronic infarcts are identified in both basal ganglia and left moises. Small chronic cortical infarcts are identified in the right frontal lobe, right parietal lobe and right anterior temporal lobe. No evidence for acute ischemia, hemorrhage or mass. No extra-axial fluid collection. The midline structures are central. The basal cisterns are patent. Normal ventricular size. The orbital cavities and sella turcica demonstrate no abnormality. The visualized paranasal sinuses and mastoid air cells are well aerated. IMPRESSION: No acute intracranial process is appreciated. No evidence for acute ischemic stroke. Advanced volume loss and chronic white matter changes. Multiple bilateral chronic infarcts as described.
[2017-01-06] MEDS: FOLVITE PO SCH (12:47)
[2017-01-06] MEDS: Renal Caps PO SCH (12:47)
[2017-01-06] MEDS: ASPIRIN PO SCH (12:47)
[2017-01-06] MEDS: CLARITIN PO SCH (12:48)
[2017-01-06] MEDS: FLONASE NS SCH (13:33)
--- NOTE | 2017-01-06 15:20 | Progress Note ---
Assessment and Plan Assessment and plan: Patient is a 66-year-old man from [facility] with a history of hypertension, glaucoma, dyslipidemia, dementia and CVA with left- sided hemiparesis and dysarthria who presents with drooling and altered mental status. MRI of the brain without contrast read as no acute intracranial process , no evidence of acute ischemic stroke. Review of old records reveals the following: Patient was recently discharged from this hospital on 12/19/2016 after slurred speech and altered mental status, he was diagnosed with TIA. On 12/18/2016, He did have a MRI which was negative for acute intracranial process ; he also had an 2-D echocardiogram on 12/18/2016 that showed estimated EF 50-55 %, trace MR and mild TR. I do not see where he was diabetic but his blood sugars on admission were only 69 -Acute metabolic encephalopathy, blood sugar was 69 on admission, no CVA, no TIA : Treat the hypoglycemia, -Hypoglycemia, not known to be diabetic: add accucheck, IV fluids with dextrose additive, check a1c -Late effect of CVA: Continue to monitor for safety -Dementia which waxes and wanes, which maybe the underlying condition to all the above, he is impulsive, ignores personal safety, he removed tele monitor, will not stay in bed, it appears this is not new. -DVT prophylaxis: SCDs and sq lovenox Full code Disposition: Continue inpatient care, evaluate for diabetes, Once blood sugar stabilized be discharged back to the [facility] History Interval history: Patient seen and examined. Follow up on current diagnosis/. Overnight uneventful. No cp, sob, n/v or severe headaches. Imaging, old records, testing, labs, nursing notes reviewed. Hospitalist Physical - Physical exam Narrative exam: GEN: Thin frail NAD, AWAKE, ALERT, ORIENTATED x 3 HEENT: NCAT, PERRL, EOMI, OP CLEAR NECK: SUPPLE, NO THYROMEGALY, NO JVD, NO LAD CVS: RRR, NORMAL S1S2 LUNGS/CHEST: CTA B, NORMAL CHEST EXPANSION B, GOOD AIR ENTRY B ABD: SOFT, NTND, GBS, NO REBOUND OR GUARDING EXT/SKIN: NO SIGNIFICANT EDEMA OR RASH MSK: Left hemiparesis NEURO: CN 2-12 GROSSLY INTACT, NO new FOCAL DEFICITS, he has dysarthria but he is understandable PSY: Impulsive, doesn't follow instructions, poor judgment - Constitutional Vitals: Temp Pulse Resp BP Pulse Ox 98.4 F 63 20 130/70 94 01/06/17 13:30 01/06/17 13:35 01/06/17 13:30 01/06/17 13:30 01/06/17 13:30 General appearance: Present: no acute distress, well-nourished Results - Labs CBC & Chem 7: 01/05/17 12:54 01/05/17 12:54 Labs: Laboratory Last Values WBC 6.1 K/mm3 (4.5-11.0) 01/05/17 12:54 RBC 5.30 M/mm3 (3.65-5.03) H 01/05/17 12:54 Hgb 15.4 gm/dl (11.8-15.2) H 01/05/17 12:54 Hct 46.1 % (35.5-45.6) H 01/05/17 12:54 MCV 87 fl (84-94) 01/05/17 12:54 MCH 29 pg (28-32) 01/05/17 12:54 MCHC 34 % (32-34) 01/05/17 12:54 RDW 14.6 % (13.2-15.2) 01/05/17 12:54 Plt Count 211 K/mm3 (140-440) 01/05/17 12:54 Lymph % (Auto) 29.1 % (13.4-35.0) 01/05/17 12:54 [place] % (Auto) 6.9 % (0.0-7.3) 01/05/17 12:54 Eos % (Auto) 1.0 % (0.0-4.3) 01/05/17 12:54 Baso % (Auto) 2.0 % (0.0-1.8) H 01/05/17 12:54 Lymph # 1.8 K/mm3 (1.2-5.4) 01/05/17 12:54 [place] # 0.4 K/mm3 (0.0-0.8) 01/05/17 12:54 Eos # 0.1 K/mm3 (0.0-0.4) 01/05/17 12:54 Baso # 0.1 K/mm3 (0.0-0.1) 01/05/17 12:54 Seg Neutrophils % 61.0 % (40.0-70.0) 01/05/17 12:54 Seg Neutrophils # 3.7 K/mm3 (1.8-7.7) 01/05/17 12:54 PT 14.0 Sec. (12.2-14.9) 01/05/17 12:54 INR 1.03 (0.87-1.13) 01/05/17 12:54 APTT 28.6 Sec. (24.2-36.6) 01/05/17 12:54 Thrombin Time 15.7 Sec. (15.1-19.6) 01/05/17 12:54 Sodium 139 mmol/L (137-145) 01/05/17 12:54 Potassium 4.4 mmol/L (3.6-5.0) 01/05/17 12:54 Chloride 101.9 mmol/L (98-107) 01/05/17 12:54 Carbon Dioxide 23 mmol/L (22-30) 01/05/17 12:54 Anion Gap 19 mmol/L 01/05/17 12:54 BUN 12 mg/dL (9-20) 01/05/17 12:54 Creatinine 1.0 mg/dL (0.8-1.5) 01/05/17 12:54 Estimated GFR > 60 ml/min 01/05/17 12:54 BUN/Creatinine Ratio 12.00 % 01/05/17 12:54 Glucose 69 mg/dL (75-100) L 01/05/17 12:54 POC Glucose 74 (70-105) 01/05/17 22:25 Calcium 9.2 mg/dL (8.4-10.2) 01/05/17 12:54 Total Bilirubin 0.90 mg/dL (0.1-1.2) 01/05/17 12:54 AST 12 units/L (5-40) 01/05/17 12:54 ALT 7 units/L (7-56) 01/05/17 12:54 Alkaline Phosphatase 108 units/L (35-129) 01/05/17 12:54 Total Creatine Kinase 160 units/L (55-170) 01/05/17 16:20 CK-MB (CK-2) 1.4 ng/mL (0.0-4.0) 01/05/17 16:20 CK-MB (CK-2) Rel Index 0.8 (0-4) 01/05/17 16:20 Troponin T < 0.010 ng/mL (0.00-0.029) 01/05/17 21:08 Total Protein 6.8 g/dL (6.3-8.2) 01/05/17 12:54 Albumin 3.8 g/dL (3.9-5) L 01/05/17 12:54 Albumin/Globulin Ratio 1.3 % 01/05/17 12:54 Triglycerides 73 mg/dL (2-149) 01/06/17 05:02 Cholesterol 124 mg/dL (50-199) 01/06/17 05:02 LDL Cholesterol Direct 55 mg/dL (50-130) 01/06/17 05:02 HDL Cholesterol 55 mg/dL (40-59) 01/06/17 05:02 Cholesterol/HDL Ratio 2.25 % 01/06/17 05:02 TSH 0.662 mlU/mL (0.270-4.200) 01/05/17 12:54 Urine Color Yellow (Yellow) 01/05/17 13:44 Urine Turbidity Clear (Clear) 01/05/17 13:44 Urine pH 6.0 (5.0-7.0) 01/05/17 13:44 Ur Specific [place] 1.012 (1.003-1.030) 01/05/17 13:44 Urine Protein <15 mg/dl mg/dL (Negative) 01/05/17 13:44 Urine Glucose (UA) Neg mg/dL (Negative) 01/05/17 13:44 Urine Ketones Neg mg/dL (Negative) 01/05/17 13:44 Urine Blood Neg (Negative) 01/05/17 13:44 Urine Nitrite Neg (Negative) 01/05/17 13:44 Urine Bilirubin Neg (Negative) 01/05/17 13:44 Urine Urobilinogen < 2.0 mg/dL (<2.0) 01/05/17 13:44 Ur Leukocyte Esterase Neg (Negative) 01/05/17 13:44 Urine WBC (Auto) < 1.0 /HPF (0.0-6.0) 01/05/17 13:44 Urine RBC (Auto) 3.0 /HPF (0.0-6.0) 01/05/17 13:44 U Epithel Cells (Auto) < 1.0 /HPF (0-13.0) 01/05/17 13:44 Urine Mucus Few /HPF 01/05/17 13:44 Urine Opiates Screen Presumptive negative 01/05/17 13:44 Urine Methadone Screen Presumptive negative 01/05/17 13:44 Ur Barbiturates Screen Presumptive negative 01/05/17 13:44 Ur Phencyclidine Scrn Presumptive negative 01/05/17 13:44 Ur Amphetamines Screen Presumptive negative 01/05/17 13:44 U Benzodiazepines Scrn Presumptive negative 01/05/17 13:44 Urine Cocaine Screen Presumptive negative 01/05/17 13:44 U Marijuana (THC) Screen Presumptive negative 01/05/17 13:44 Drugs of Abuse Note Disclamer 01/05/17 13:44 Plasma/Serum Alcohol < 0.01 gm% (0-0.07) 01/05/17 12:54 Blood Type O NEGATIVE 01/05/17 12:54 Antibody Screen TNR 01/05/17 12:54 MER Antibody Screen Negative 01/05/17 12:54
[2017-01-06] MEDS ORDERED: D50W (25GM) IV PRN (15:31)
[2017-01-06] MEDS: NOVOLOG SUB-Q SCH ×2 (18:32→23:58)
[2017-01-06] MEDS: D5/0.45NS 1,000 ML IV SCH (18:47)
[2017-01-06] MEDS ORDERED: XALATAN 0.005% OU SCH (22:00)
[2017-01-06] MEDS: LOVENOX SUB-Q SCH (22:01)
[2017-01-07] MEDS: D5/0.45NS 1,000 ML IV SCH (04:10)
[2017-01-07] MEDS: NOVOLOG SUB-Q SCH ×2 (09:10→12:29)
[2017-01-07 11:08] VITALS: BP 121/78
[2017-01-07] MEDS: CLARITIN PO SCH (12:28)
[2017-01-07] MEDS: FOLVITE PO SCH (12:28)
[2017-01-07] MEDS: ASPIRIN PO SCH (12:28)
[2017-01-07] MEDS: FLONASE NS SCH (12:28)
[2017-01-07] MEDS: Renal Caps PO SCH (12:29)
--- NOTE | 2017-01-07 12:48 | Discharge Summary ---
Providers - Providers Date of Admission: 01/05/17 19:45 Date of discharge: 01/07/17 Attending physician: YARON BANEGAS Primary care physician: BARK SKINNER Hospitalization Condition: Stable Hospital course: Patient is a 66-year-old man from [facility] with a history of hypertension, glaucoma, dyslipidemia, dementia and CVA with left- sided hemiparesis and dysarthria who presents with drooling and altered mental status. MRI of the brain without contrast read as no acute intracranial process , no evidence of acute ischemic stroke. Review of old records reveals the following: Patient was recently discharged from this hospital on 12/19/2016 after slurred speech and altered mental status, he was diagnosed with TIA. On 12/18/2016, He did have a MRI which was negative for acute intracranial process ; he also had an 2-D echocardiogram on 12/18/2016 that showed estimated EF 50-55 %, trace MR and mild TR. I do not see where he was diabetic but his blood sugars on admission were only 69 -Acute metabolic encephalopathy, blood sugar was 69 on admission, no CVA, no TIA : Treat the hypoglycemia, -Hypoglycemia, not known to be diabetic: add accucheck, IV fluids with dextrose additive, check a1c -Late effect of CVA: Continue to monitor for safety -Dementia which waxes and wanes, which maybe the underlying condition to all the above, he is impulsive, ignores personal safety, he removed tele monitor, will not stay in bed, it appears this is not new. -DVT prophylaxis: SCDs and sq lovenox Full code Disposition: discharged back to the [facility] [place] Disposition: DC-01 TO HOME OR SELFCARE Time spent for discharge: 32 minutes Core Measure Documentation - Palliative Care Palliative Care/ Comfort Measures: Not Applicable - Core Measures Any of the following diagnoses?: none - VTE Discharge Requirements Deep Vein Thrombosis/Pulmonary Embolism Present on Admission: No Has pt received <5 days of overlap therapy or INR<2.0: No Anticoagulant overlap therapy prescribed at discharge: No Contraindication No Overlap Therapy order at DC: Not Indicated Exam - Physical Exam Narrative exam: GEN: Thin frail NAD, AWAKE, ALERT, ORIENTATED x 3 HEENT: NCAT, PERRL, EOMI, OP CLEAR NECK: SUPPLE, NO THYROMEGALY, NO JVD, NO LAD CVS: RRR, NORMAL S1S2 LUNGS/CHEST: CTA B, NORMAL CHEST EXPANSION B, GOOD AIR ENTRY B ABD: SOFT, NTND, GBS, NO REBOUND OR GUARDING EXT/SKIN: NO SIGNIFICANT EDEMA OR RASH MSK: Left hemiparesis NEURO: CN 2-12 GROSSLY INTACT, NO new FOCAL DEFICITS, he has dysarthria but he is understandable PSY: Impulsive, doesn't follow instructions, poor judgment - Constitutional Vitals: Temp Pulse Resp BP Pulse Ox 98.1 F 84 18 121/78 97 01/07/17 11:07 01/07/17 11:07 01/07/17 11:07 01/07/17 11:07 01/07/17 11:07 Plan Activity: fall precautions, other (no strenous activites until cleared by PCP. ) Diet: low salt Follow up with: PRIMARY CAREMD [Primary Care Provider] - 3-5 Days
== END 2017-01-07 15:01 | disposition home or self-care (01) | DRG 640 ==
LOC: ED 12:10 → 4A 19:45
PROVIDERS: ADMIT Family Medicine; ATTEND Internal Medicine
DX: E16.2 Hypoglycemia, unspecified (principal); G93.41 Metabolic encephalopathy; I69.354 Hemiplegia and hemiparesis following cerebral infarction affecting left non-dominant side; Z72.0 Tobacco use; I69.322 Dysarthria following cerebral infarction; I10 Essential (primary) hypertension; F03.90 Unspecified dementia, unspecified severity, without behavioral disturbance, psychotic disturbance, mood disturbance, and anxiety; E78.00 Pure hypercholesterolemia, unspecified; Z79.82 Long term (current) use of aspirin; Z85.46 Personal history of malignant neoplasm of prostate; J43.9 Emphysema, unspecified
CPT/HCPCS: 36415; 70450; 70544; 70551; 80053; 80061; 80307; 80320; 81001; 82550; 82553; 82962; 83036; 84443; 84484; 85025; 85610; 85670; 85730; 86850; 86900; 86901; 93005; 93010; 93308; 93321; 93325; 99285; A9270-GY; G0480; G8987-GO; G8988-GO; G8989-GO; J1650

== ENCOUNTER 2017-04-01 19:50 | Emergency (ER) | payer MEDICARE ==
[2017-04-01 22:00] LABS: Basophils % (Auto) 0.6 % (0.0-1.8); Eosinophils % (Auto) 0.1 % (0.0-4.3); Hematocrit 45.3 % (35.5-45.6); Hemoglobin 15.1 gm/dl (11.8-15.2); Mean Corpuscular HGB Conc 33 % (32-34); Mean Corpuscular Hemoglobin 29 pg (28-32); Mean Corpuscular Volume 87 fl (84-94); Platelet Count 221 K/mm3 (140-440); Red Blood Count 5.23 M/mm3 (3.65-5.03); Red Cell Distribution Width 14.5 % (13.2-15.2)
[2017-04-01] MEDS ORDERED: KIONEX PO ONE (22:34)
[2017-04-01 22:36] LABS: Alanine Aminotransferase 9 units/L (7-56); Albumin 4.1 g/dL (3.9-5); Albumin/Globulin Ratio 1.6 %; Alkaline Phosphatase 119 units/L (35-129); Anion Gap 17 mmol/L; BUN/Creatinine Ratio 12; Blood Urea Nitrogen 12 mg/dL (9-20); Calcium 9.1 mg/dL (8.4-10.2); Carbon Dioxide 27 mmol/L (22-30); Glucose 104 mg/dL (75-100); Sodium 142 mmol/L (137-145); Total Protein 6.6 g/dL (6.3-8.2)
--- NOTE | 2017-04-02 00:24 | Cat Scan Report ---
FINAL REPORT PROCEDURE: CT HEAD/BRAIN WO CON TECHNIQUE: Computerized tomography of the head was performed without contrast material. HISTORY: altredd mental status COMPARISON: 12/17/2016 FINDINGS: Skull and scalp: Normal. Paranasal sinuses: Normal. Ventricles and subarachnoid spaces: There is advanced central and cortical atrophy. There is no hydrocephalus or asymmetry.. Cerebrum: No evidence of hemorrhage, acute infarction or mass. There are old infarct defects in the right hemisphere and in the basal ganglia and deep white matter bilaterally. There is chronic periventricular deep white matter ischemic gliosis. Cerebellum and brainstem: No evidence of hemorrhage, acute infarction or mass. There old to the infarct defects in the cerebellar hemispheres larger on the right. Vasculature: There is calcified plaque in the cavernous portions of the internal carotid arteries per. Comments: None. IMPRESSION: There are chronic changes as described. There is no acute abnormality.
--- NOTE | 2017-04-02 01:18 | Emergency Department Report ---
ED General Adult HPI - General Chief complaint: Weakness Stated complaint: AMS Time Seen by Provider: 04/01/17 22:04 Source: patient, EMS Mode of arrival: Stretcher Limitations: Physical Limitation, Other - History of Present Illness Initial comments: Patient is a 66-year-old male past medical history of dementia, hypertension and stroke who presents with weakness. History is limited due to patient not speaking to me. Patient arrives from senior living records state that the chief complaint was weakness. Patient only answers yes or now and is in no distress. He is satting 100% on room air. Severity scale (0 -10): 0 - Related Data Home Medications Medication Instructions Recorded Confirmed Last Taken B12/Levomefolate Calcium/B-6 1 tab PO DAILY #0 04/02/16 01/05/17 1 Day Ago [Foltx Tablet] Folic Acid [Folvite] 1 mg PO QDAY 04/02/16 01/05/17 1 Day Ago Omeprazole 40 mg PO DAILY 04/02/16 01/05/17 1 Day Ago Latanoprost 0.005% [Xalatan 0.005%] 1 drop OP QPM 01/05/17 01/05/17 Unknown Previous Rx's Medication Instructions Recorded Last Taken Type Aspirin [Aspirin BABY CHEW TAB] 81 mg PO QDAY #30 tab.chew 04/05/16 1 Day Ago Rx Fluticasone [Flonase] 1 spray NS QDAY #1 bottle 07/22/16 1 Day Ago Rx Loratadine [Claritin] 10 mg PO DAILY #7 tablet 07/22/16 1 Day Ago Rx AtorvaSTATin [Lipitor] 40 mg PO QHS #30 tab 12/19/16 Unknown Rx Allergies Allergy/AdvReac Type Severity Reaction Status Date / Time No Known Allergies Allergy Verified 07/22/16 16:45 ED Review of Systems ROS: Stated complaint: AMS Other details as noted in HPI Comment: Unobtainable due to pts medical conditions (patient not answering questions) ED Past Medical Hx - Past Medical History Hx Hypertension: Yes Hx CVA: Yes Hx Heart Attack/AMI: No Hx Congestive Heart Failure: No Hx Deep Vein Thrombosis: No Hx Pulmonary Embolism: No Hx Seizures: No Hx Asthma: No Hx Tuberculosis: No Hx Dementia: Yes Hx HIV: No Additional medical history: high cholesterol, Right inquinal hernia - Surgical History Hx Coronary Stent: No Hx Open Heart Surgery: No Hx Pacemaker: No Hx Internal Defibrillator: No Hx Appendectomy: No Hx Breast Surgery: No - Social History Smoking Status: Current Every Day Smoker Substance Use Type: None - Medications Home Medications: Home Medications Medication Instructions Recorded Confirmed Last Taken Type B12/Levomefolate Calcium/B-6 1 tab PO DAILY #0 04/02/16 01/05/17 1 Day Ago History [Foltx Tablet] Folic Acid [Folvite] 1 mg PO QDAY 04/02/16 01/05/17 1 Day Ago History Omeprazole 40 mg PO DAILY 04/02/16 01/05/17 1 Day Ago History Aspirin [Aspirin BABY CHEW TAB] 81 mg PO QDAY #30 tab.chew 04/05/16 01/05/17 1 Day Ago Rx Fluticasone [Flonase] 1 spray NS QDAY #1 bottle 07/22/16 01/05/17 1 Day Ago Rx Loratadine [Claritin] 10 mg PO DAILY #7 tablet 07/22/16 01/05/17 1 Day Ago Rx AtorvaSTATin [Lipitor] 40 mg PO QHS #30 tab 12/19/16 01/05/17 Unknown Rx Latanoprost 0.005% [Xalatan 0.005%] 1 drop OP QPM 01/05/17 01/05/17 Unknown History ED Physical Exam - General Limitations: Physical Limitation, Other General appearance: alert, in no apparent distress - Head Head exam: Present: atraumatic, normocephalic - Eye Eye exam: Present: normal appearance - ENT ENT exam: Present: mucous membranes moist - Neck Neck exam: Present: normal inspection - Respiratory Respiratory exam: Present: normal lung sounds bilaterally. Absent: respiratory distress - Cardiovascular Cardiovascular Exam: Present: regular rate, normal rhythm. Absent: systolic murmur, diastolic murmur, rubs, gallop - GI/Abdominal GI/Abdominal exam: Present: soft, normal bowel sounds - Rectal Rectal exam: Present: deferred - Extremities Exam Extremities exam: Present: normal inspection - Back Exam Back exam: Present: normal inspection - Neurological Exam Neurological exam: Present: alert - Psychiatric Psychiatric exam: Present: other (unable to assess patient on answering questions) - Skin Skin exam: Present: warm, dry, intact, normal color. Absent: rash ED Course Vital Signs 04/01/17 04/01/17 04/01/17 20:56 21:32 23:03 Temperature 98.6 F Pulse Rate 75 78 80 Respiratory 18 18 Rate Blood Pressure 111/56 Blood Pressure 124/63 [Left] O2 Sat by Pulse 96 99 Oximetry 04/02/17 01:09 Temperature 98.8 F Pulse Rate 83 Respiratory 18 Rate Blood Pressure Blood Pressure 126/73 [Left] O2 Sat by Pulse 99 Oximetry ED Medical Decision Making - Lab Data Result diagrams: 04/01/17 21:04 04/01/17 21:03 Lab Results 04/01/17 04/01/17 04/01/17 Range/Units 21:03 21:04 23:12 WBC 10.0 (4.5-11.0) K/mm3 RBC 5.23 H (3.65-5.03) M/mm3 Hgb 15.1 (11.8-15.2) gm/dl Hct 45.3 (35.5-45.6) % MCV 87 (84-94) fl MCH 29 (28-32) pg MCHC 33 (32-34) % RDW 14.5 (13.2-15.2) % Plt Count 221 (140-440) K/mm3 Lymph % (Auto) 12.4 L (13.4-35.0) % Saline % (Auto) 6.5 (0.0-7.3) % Eos % (Auto) 0.1 (0.0-4.3) % Baso % (Auto) 0.6 (0.0-1.8) % Lymph # 1.2 (1.2-5.4) K/mm3 Saline # 0.7 (0.0-0.8) K/mm3 Eos # 0.0 (0.0-0.4) K/mm3 Baso # 0.1 (0.0-0.1) K/mm3 Seg Neutrophils % 80.4 H (40.0-70.0) % Seg Neutrophils # 8.1 H (1.8-7.7) K/mm3 Sodium 142 (137-145) mmol/L Potassium 4.0 (3.6-5.0) mmol/L Chloride 102.0 (98-107) mmol/L Carbon Dioxide 27 (22-30) mmol/L Anion Gap 17 mmol/L BUN 12 (9-20) mg/dL Creatinine 1.0 (0.8-1.5) mg/dL Estimated GFR > 60 ml/min BUN/Creatinine Ratio 12 % Glucose 104 H (75-100) mg/dL Calcium 9.1 (8.4-10.2) mg/dL Total Bilirubin 0.80 (0.1-1.2) mg/dL AST 19 (5-40) units/L ALT 9 (7-56) units/L Alkaline Phosphatase 119 (35-129) units/L Troponin T < 0.010 (0.00-0.029) ng/mL Total Protein 6.6 (6.3-8.2) g/dL Albumin 4.1 (3.9-5) g/dL Albumin/Globulin Ratio 1.6 % - EKG Data -: EKG Interpreted by Pr - EKG Data 04/02/17 02:24 EKG shows normal sinus rhythm left axis deviation no ST segment elevation or T- wave inversion - Radiology Data Radiology results: image reviewed CT head: Shows no acute intracranial process Chest x-ray: Shows mild cardiomegaly and pulmonary vascular congestion - Medical Decision Making Chief medical diagnosis: Dementia Differential medical diagnosis: Electrolyte abnormality, non-STEMI, subdural hematoma cbc, cmp, CT head, troponin, EKG, chest x-ray, Patient's lab work is unremarkable patient's imaging is unremarkable. I will send patient back to his senior living. With the diagnosis of weakness and dementia. Patient does not have any medical reason for admission to the hospital. His weakness can be further worked up by the doctor in the senior living. He would not benefit from the risks of admission. Discussed plan with patient he says yes. Patient has a history of dementia and his chart this is probably the patient's baseline. Critical care attestation.: If time is entered above; I have spent that time in minutes in the direct care of this critically ill patient, excluding procedure time. ED Disposition Clinical Impression: Weakness Dementia Qualifiers: Dementia type: unspecified type Dementia behavioral disturbance: without behavioral disturbance Qualified Code(s): F03.90 - Unspecified dementia without behavioral disturbance Disposition: DC-01 TO HOME OR SELFCARE Is pt being admited?: No Does the pt Need Aspirin: No Condition: Stable Instructions: Weakness (ED)
[2017-04-02 07:51] VITALS: BP 115/75
--- NOTE | 2017-04-02 09:14 | XRay Report ---
Single view chest: Compared to 04/02/16. History: Cough. Findings: Normal cardiomediastinal silhouette. Trachea is midline. Prominent bronchovascular markings without significant interval change. Normal CP angles. Impression: No significant interval change.
== END 2017-04-02 08:20 | disposition home or self-care (01) ==
LOC: ED 19:50
DX: F03.90 Unspecified dementia, unspecified severity, without behavioral disturbance, psychotic disturbance, mood disturbance, and anxiety (principal); I10 Essential (primary) hypertension; E78.00 Pure hypercholesterolemia, unspecified; F17.210 Nicotine dependence, cigarettes, uncomplicated; Z86.73 Personal history of transient ischemic attack (TIA), and cerebral infarction without residual deficits; Z79.82 Long term (current) use of aspirin
CPT/HCPCS: 36415; 70450; 71010; 80053; 84484; 85025; 93005; 93010; 99285

== ENCOUNTER 2017-05-16 20:30 | Emergency (ER) | payer SELFPAY ==
[2017-05-17 00:10] LABS: Basophils % (Auto) 1.2 % (0.0-1.8); Eosinophils % (Auto) 2.4 % (0.0-4.3); Hematocrit 46.5 % (35.5-45.6); Hemoglobin 15.7 gm/dl (11.8-15.2); Mean Corpuscular HGB Conc 34 % (32-34); Mean Corpuscular Hemoglobin 29 pg (28-32); Mean Corpuscular Volume 87 fl (84-94); Platelet Count 201 K/mm3 (140-440); Red Blood Count 5.37 M/mm3 (3.65-5.03); Red Cell Distribution Width 14.6 % (13.2-15.2); White Blood Count 7.7 K/mm3 (4.5-11.0)
[2017-05-17 00:41] LABS: Anion Gap 17 mmol/L; BUN/Creatinine Ratio 14; Blood Urea Nitrogen 15 mg/dL (9-20); Calcium 8.9 mg/dL (8.4-10.2); Carbon Dioxide 25 mmol/L (22-30); Chloride 104.7 mmol/L (98-107); Glucose 91 mg/dL (75-100); Potassium 4.1 mmol/L (3.6-5.0); Sodium 143 mmol/L (137-145)
--- NOTE | 2017-05-17 02:42 | XRay Report ---
FINAL REPORT EXAM: XR CHEST 1V AP HISTORY: chest pain TECHNIQUE: A portable upright view of the chest was obtained. There are no previous studies available for comparison. FINDINGS: The heart is mildly enlarged. The thoracic aorta is mildly tortuous. There is interstitial prominence in both lungs with thickening of the right minor fissure. Mild CHF is suspected. There are no localized infiltrates or effusions. The bones and soft tissues do not show any acute changes. IMPRESSION: Interstitial prominence in both lungs suggesting congestive heart failure. No localized infiltrates.
--- NOTE | 2017-05-17 05:03 | Emergency Department Report ---
ED Chest Pain HPI - General Chief Complaint: Chest Pain Stated Complaint: GENERAL ILLNESS Time Seen by Provider: 05/17/17 01:18 Source: patient, EMS Mode of arrival: Stretcher Limitations: No Limitations - History of Present Illness Initial Comments: 67 yo male who comes in today due to chest pain. He does have a history of dementia, but admits to the start of chest pain on yesterday. He states that the chest pain started while at rest. The chest pain is described as midsternal , /, with no associated nausea, vomiting, or diaphoresis. In the ED, the patient states that he is pain free. Complaint: chest pain -: days(s) (1) Onset: during rest Pain Location: substernal Pain Radiation: none Severity scale (0 -10): 10 Quality: aching, sharp Consistency: now resolved Improves With: rest Worsens With: nothing Context: other (none ) re: other (none) Other Symptoms: other (none) Treatments Prior to Arrival: none - Related Data Home Medications Medication Instructions Recorded Confirmed Last Taken B12/Levomefolate Calcium/B-6 1 tab PO DAILY #0 04/02/16 01/05/17 1 Day Ago [Foltx Tablet] ~12/18/16 Folic Acid [Folvite] 1 mg PO QDAY 04/02/16 01/05/17 1 Day Ago ~12/18/16 Omeprazole 40 mg PO DAILY 04/02/16 01/05/17 1 Day Ago ~12/18/16 Latanoprost 0.005% [Xalatan 0.005%] 1 drop OP QPM 01/05/17 01/05/17 Unknown Previous Rx's Medication Instructions Recorded Last Taken Type Aspirin [Aspirin BABY CHEW TAB] 81 mg PO QDAY #30 tab.chew 04/05/16 1 Day Ago Rx ~12/18/16 Fluticasone [Flonase] 1 spray NS QDAY #1 bottle 07/22/16 1 Day Ago Rx ~12/18/16 Loratadine [Claritin] 10 mg PO DAILY #7 tablet 07/22/16 1 Day Ago Rx ~12/18/16 AtorvaSTATin [Lipitor] 40 mg PO QHS #30 tab 12/19/16 Unknown Rx Allergies Allergy/AdvReac Type Severity Reaction Status Date / Time No Known Allergies Allergy Verified 07/22/16 16:45 Heart Score - HEART Score History: Slightly suspicious EKG: Normal Age: > 65 Risk factors: > 3 risk factors or hx of atherosclerotic disease Troponin: < normal limit HEART Score: 4 ED Review of Systems ROS: Stated complaint: GENERAL ILLNESS Other details as noted in HPI Constitutional: denies: chills, fever Eyes: denies: eye pain, eye discharge, vision change ENT: denies: ear pain, throat pain Respiratory: denies: cough, shortness of breath, wheezing Cardiovascular: as per HPI, chest pain Endocrine: no symptoms reported Gastrointestinal: denies: abdominal pain, nausea, diarrhea Genitourinary: denies: urgency, dysuria Musculoskeletal: denies: back pain, joint swelling, arthralgia Skin: denies: rash, lesions Neurological: denies: headache, weakness, paresthesias Psychiatric: denies: anxiety, depression Hematological/Lymphatic: denies: easy bleeding, easy bruising ED Past Medical Hx - Past Medical History Previous Medical History?: Yes Hx Hypertension: Yes Hx CVA: Yes Hx Heart Attack/AMI: No Hx Congestive Heart Failure: No Hx Deep Vein Thrombosis: No Hx Pulmonary Embolism: No Hx Seizures: No Hx Asthma: No Hx Tuberculosis: No Hx Dementia: Yes Hx HIV: No Additional medical history: high cholesterol, Right inguinal hernia, prostate cancer - Surgical History Past Surgical History?: Yes Hx Coronary Stent: No Hx Open Heart Surgery: No Hx Pacemaker: No Hx Internal Defibrillator: No Hx Appendectomy: No Hx Breast Surgery: No - Social History Smoking Status: Current Every Day Smoker Substance Use Type: None - Medications Home Medications: Home Medications Medication Instructions Recorded Confirmed Last Taken Type B12/Levomefolate Calcium/B-6 1 tab PO DAILY #0 04/02/16 01/05/17 1 Day Ago History [Foltx Tablet] ~12/18/16 Folic Acid [Folvite] 1 mg PO QDAY 04/02/16 01/05/17 1 Day Ago History ~12/18/16 Omeprazole 40 mg PO DAILY 04/02/16 01/05/17 1 Day Ago History ~12/18/16 Aspirin [Aspirin BABY CHEW TAB] 81 mg PO QDAY #30 tab.chew 04/05/16 01/05/17 1 Day Ago Rx ~12/18/16 Fluticasone [Flonase] 1 spray NS QDAY #1 bottle 07/22/16 01/05/17 1 Day Ago Rx ~12/18/16 Loratadine [Claritin] 10 mg PO DAILY #7 tablet 07/22/16 01/05/17 1 Day Ago Rx ~12/18/16 AtorvaSTATin [Lipitor] 40 mg PO QHS #30 tab 12/19/16 01/05/17 Unknown Rx Latanoprost 0.005% [Xalatan 0.005%] 1 drop OP QPM 01/05/17 01/05/17 Unknown History ED Physical Exam - General Limitations: No Limitations General appearance: alert, in no apparent distress - Head Head exam: Present: atraumatic, normocephalic - Eye Eye exam: Present: normal appearance - ENT ENT exam: Present: mucous membranes moist - Neck Neck exam: Present: normal inspection - Respiratory Respiratory exam: Present: normal lung sounds bilaterally. Absent: respiratory distress - Cardiovascular Cardiovascular Exam: Present: regular rate, normal rhythm. Absent: systolic murmur, diastolic murmur, rubs, gallop - Extremities Exam Extremities exam: Present: normal inspection - Back Exam Back exam: Present: normal inspection - Neurological Exam Neurological exam: Present: other (history of dementia-baseline ) - Psychiatric Psychiatric exam: Present: other (dementia-baseline) - Skin Skin exam: Present: warm, dry, intact, normal color. Absent: rash ED Course Vital Signs 05/16/17 05/17/17 05/17/17 20:43 00:00 00:01 Temperature 98.4 F Pulse Rate 88 76 76 Respiratory 15 16 Rate Blood Pressure 116/81 115/73 Blood Pressure 119/80 [Left] O2 Sat by Pulse 96 99 97 Oximetry 05/17/17 05/17/17 05/17/17 00:02 01:00 02:00 Temperature Pulse Rate 82 69 Respiratory 18 16 Rate Blood Pressure 109/74 109/74 Blood Pressure [Left] O2 Sat by Pulse 97 100 95 Oximetry 05/17/17 03:00 Temperature Pulse Rate Respiratory Rate Blood Pressure 117/69 Blood Pressure [Left] O2 Sat by Pulse Oximetry - Reevaluation(s) Reevaluation #1: 05/17/17 05:06 First two sets of enzymes and ekg's negative. Home if third set is negative. HANNAH score - Hannah Score Age > 65: (1) Yes Aspirin use within the Past 7 Days: (0) No 3 or more CAD Risk Factors: (0) No 2 or more Angina events in past 24 hrs: (0) No Known CAD with more than 50% Stenosis: (0) No Elevated Cardiac Markers: (0) No ST Deviation Greater than 0.5mm: (0) No HANNAH Score: 1 ED Medical Decision Making - Lab Data Result diagrams: 05/16/17 23:00 05/16/17 23:00 - EKG Data EKG shows normal: sinus rhythm Rate: normal - EKG Data When compared to previous EKG there are: previous EKG unavailable Interpretation: normal EKG - Radiology Data Radiology results: report reviewed Cardiomegaly CHF - Medical Decision Making Chest pain dementia - Differential Diagnosis Chest pain, dementia Critical care attestation.: If time is entered above; I have spent that time in minutes in the direct care of this critically ill patient, excluding procedure time. ED Disposition Clinical Impression: Chest pain, Dementia Disposition: DC/TX-70 ANOTHER TYPE HLTHCARE Is pt being admited?: No Does the pt Need Aspirin: No Condition: Stable Instructions: Chest Pain (ED) Referrals: [facility] [Other] - 3-5 Days Time of Disposition: 05:10
[2017-05-17 06:15] VITALS: BP 111/69
== END 2017-05-17 10:38 | disposition other institution (70) ==
LOC: ED 20:30
DX: R07.81 Pleurodynia (principal); F03.90 Unspecified dementia, unspecified severity, without behavioral disturbance, psychotic disturbance, mood disturbance, and anxiety
CPT/HCPCS: 36415; 71010; 80048; 84484; 85025; 93005; 93010